=== PATIENT | male | born 1960 | race Caucasian/White ===

== ENCOUNTER 2016-12-26 08:03 | Inpatient (IN) | payer OTHER, MEDICAID ==
[~2016-12-26] VITALS: Ht 152.4 cm; Wt 65.5 kg
[2016-12-26 09:00] LABS: microscopic required? NO
[2016-12-26 09:15] LABS: UA SPECIFIC GRAVITY 1.015 (1.005-1.035); urine erythrocyte NEGATIVE (NEGATIVE)
[2016-12-26 11:11] LABS: BASOPHIL % 0.1 % (0-2)
[2016-12-26 11:12] LABS: PLATELET COUNT 446 x10^3mcL (130-400); RED CELL DISTRIBUTION WIDTH 15.9 % (11.5-14.5)
[2016-12-26 11:31] LABS: CALCIUM 8.6 mg/dL (8.5-10.1); CARBON DIOXIDE 32.6 mmol/L (21-32); CHLORIDE SERUM 103 mmol/L (98-107); CREATININE SERUM 1.3 mg/dL (0.7-1.3); GFR1 > 60 mL/min; GLUCOSE SERUM 109 mg/dL (74-106); POTASSIUM SERUM 4.1 mmol/L (3.5-5.1); SODIUM SERUM 138 mmol/L (136-145)
[2016-12-26 11:36] LABS: ALKALINE PHOSPHATASE 96 U/L (46-116); ALT/SGPT 10 U/L (16-63); AST/SGOT 18 U/L (15-37); BILIRUBIN TOTAL 0.32 mg/dL (0.20-1.00); TOTAL PROTEIN, SERUM 7.2 g/dL (6.4-8.2)
[2016-12-26 11:37] LABS: ALBUMIN 1.8 g/dL (3.4-5.0)
[2016-12-26] MEDS ORDERED: REFRESH OPTIVE (13:16)
[2016-12-26] MEDS ORDERED: MAXITROL1 OIN OU (13:17)
[2016-12-26] MEDS ORDERED: FLUOROMETHOLONE (13:18)
[2016-12-26] MEDS ORDERED: TINACTIN1% (13:19)
[2016-12-26] MEDS ORDERED: SELENIUM SULFIDE (13:20)
[2016-12-26] MEDS ORDERED: VITAMIN C PURE500 M1 PO (13:21)
[2016-12-26] MEDS ORDERED: MOM (13:22)
[2016-12-26] MEDS ORDERED: ACETAMINOPHEN (13:22)
[2016-12-26] MEDS ORDERED: [UNRECOGNIZED DRUG - OTHER] TP (13:23)
[2016-12-26] MEDS ORDERED: SEROQUEL100 MG PO (13:24)
[2016-12-26] MEDS ORDERED: ONE A DAY MEN (13:24)
[2016-12-26] MEDS ORDERED: SLOW RELEASE47.5 MG (13:24)
[2016-12-26] MEDS ORDERED: PROZ20 PO (13:25)
[2016-12-26] MEDS ORDERED: LEVOTHYROXIN0.125 M2 PO (13:25)
[2016-12-26] MEDS ORDERED: DEPAKOTE ER500 MG PO (13:26)
[2016-12-26] MEDS ORDERED: CERTIRIZINE HCL (13:27)
[2016-12-26 14:23] VITALS: BP 120/66
[2016-12-26 14:28] VITALS: Ht 152.4 cm; Wt 65.5 kg
[2016-12-26 15:22] LABS: CHOLESTEROL/HDL RATIO 2.9
[2016-12-26 15:28] LABS: AMPHETAMINE QUAL UR NONE DETECTED (NEG <=1000)
[2016-12-26 15:35] LABS: T3 TOTAL 0.38 ng/mL
[2016-12-26 15:38] LABS: FREE T4 0.97 ng/dL (0.76-1.46); FREE THYROXINE INDEX 1.2 ug/dL (1.4-4.5); T4(THYROXINE) 3.3 ug/dL (4.7-13.3)
[2016-12-26 22:37] VITALS: BP 105/48
[2016-12-27 05:56] LABS: BASOPHIL % 0.1 % (0-2)
[2016-12-27 06:14] LABS: CALCIUM 8.5 mg/dL (8.5-10.1); CARBON DIOXIDE 32.1 mmol/L (21-32); CHLORIDE SERUM 102 mmol/L (98-107); CREATININE SERUM 1.3 mg/dL (0.7-1.3); GFR1 > 60 mL/min; GLUCOSE SERUM 84 mg/dL (74-106); PHOSPHOROUS 3.8 mg/dL (2.5-4.9); POTASSIUM SERUM 4.1 mmol/L (3.5-5.1); SODIUM SERUM 137 mmol/L (136-145)
[2016-12-27 06:33] LABS: PLATELET COUNT 418 x10^3mcL (130-400); RED CELL DISTRIBUTION WIDTH 16.5 % (11.5-14.5)
[2016-12-27 07:07] VITALS: BP 77/47
[2016-12-27 07:09] VITALS: BP 77/47
[2016-12-27 08:34] VITALS: BP 135/92
[2016-12-27 12:55] VITALS: BP 96/57
[2016-12-27 17:22] VITALS: BP 93/59
[2016-12-27 21:44] VITALS: BP 91/59
[2016-12-28 06:11] LABS: BASOPHIL % 0.5 % (0-2)
[2016-12-28 06:22] LABS: CALCIUM 8.2 mg/dL (8.5-10.1); CARBON DIOXIDE 33.3 mmol/L (21-32); CREATININE SERUM 1.4 mg/dL (0.7-1.3); PHOSPHOROUS 4.2 mg/dL (2.5-4.9); POTASSIUM SERUM 3.9 mmol/L (3.5-5.1)
[2016-12-28 06:35] VITALS: BP 104/52
[2016-12-28 06:36] LABS: PLATELET COUNT 416 x10^3mcL (130-400); RED CELL DISTRIBUTION WIDTH 16.9 % (11.5-14.5); rbc morphology (normal/abnorm) ABNORMAL (NORMAL)
[2016-12-28 09:01] VITALS: BP 95/61
[2016-12-28 17:59] VITALS: BP 90/56
[2016-12-28 21:46] VITALS: BP 99/53
[2016-12-29 05:08] VITALS: BP 109/50
[2016-12-29 06:51] LABS: BASOPHIL % 0.3 % (0-2)
[2016-12-29 06:59] LABS: PLATELET COUNT 432 x10^3mcL (130-400); RED CELL DISTRIBUTION WIDTH 16.2 % (11.5-14.5)
[2016-12-29 07:00] LABS: rbc morphology (normal/abnorm) ABNORMAL (NORMAL)
[2016-12-29 07:21] LABS: CALCIUM 8.1 mg/dL (8.5-10.1); CREATININE SERUM 1.5 mg/dL (0.7-1.3); PHOSPHOROUS 2.9 mg/dL (2.5-4.9); POTASSIUM SERUM 3.6 mmol/L (3.5-5.1)
[2016-12-29 09:15] VITALS: BP 95/57
[2016-12-29 13:38] VITALS: BP 93/53
[2016-12-29 17:33] VITALS: BP 96/50
[2016-12-29 20:54] VITALS: BP 97/44
[2016-12-30 05:22] VITALS: BP 141/89
[2016-12-30 06:43] LABS: BASOPHIL % 0.5 % (0-2); PLATELET COUNT 386 x10^3mcL (130-400)
[2016-12-30 06:46] LABS: CARBON DIOXIDE 33.3 mmol/L (21-32); CREATININE SERUM 1.5 mg/dL (0.7-1.3); RED CELL DISTRIBUTION WIDTH 16.5 % (11.5-14.5); rbc morphology (normal/abnorm) ABNORMAL (NORMAL)
[2016-12-30 09:00] VITALS: BP 95/55
[2016-12-30 14:38] VITALS: BP 94/59
[2016-12-30 14:46] VITALS: BP 94/59
[2016-12-30 17:05] VITALS: BP 91/51
[2016-12-30 22:36] VITALS: BP 90/56
[2016-12-31 05:51] VITALS: BP 97/46
[2016-12-31 06:24] LABS: CALCIUM 8.2 mg/dL (8.5-10.1); CARBON DIOXIDE 30.9 mmol/L (21-32); CREATININE SERUM 1.4 mg/dL (0.7-1.3); PHOSPHOROUS 3.4 mg/dL (2.5-4.9); POTASSIUM SERUM 4.3 mmol/L (3.5-5.1)
[2016-12-31 08:37] LABS: BASOPHIL % 0.5 % (0-2); PLATELET COUNT 422 x10^3mcL (130-400); RED CELL DISTRIBUTION WIDTH 17.3 % (11.5-14.5)
[2016-12-31 10:16] VITALS: BP 126/50
[2016-12-31 13:30] VITALS: BP 124/65
[2016-12-31 17:10] VITALS: BP 90/53
[2017-01-01] VITALS (7 sets, daily range): BP systolic 80–128; BP diastolic 34–64
[2017-01-01 06:16] LABS: BASOPHIL % 0.7 % (0-2)
[2017-01-01 06:21] LABS: CALCIUM 8.1 mg/dL (8.5-10.1); CREATININE SERUM 1.4 mg/dL (0.7-1.3); MAGNESIUM 1.9 mg/dL (1.8-2.4); PHOSPHOROUS 4.1 mg/dL (2.5-4.9); POTASSIUM SERUM 4.3 mmol/L (3.5-5.1)
[2017-01-01 06:37] LABS: PLATELET COUNT 404 x10^3mcL (130-400); RED CELL DISTRIBUTION WIDTH 17.3 % (11.5-14.5)
[2017-01-01 06:38] LABS: rbc morphology (normal/abnorm) ABNORMAL (NORMAL)
[2017-01-01] MEDS ORDERED: LEV500PM IV (10:55)
[2017-01-01] MEDS ORDERED: CLE6PM IV (10:58)
[2017-01-01] MEDS ORDERED: APAP/HYDROCODON1 T13 PO (11:00)
[2017-01-01] MEDS ORDERED: FLO4 PO (11:00)
[2017-01-01] MEDS ORDERED: IPRATROPIUM BROM3 M2 HHN (11:00)
[2017-01-01] MEDS ORDERED: TYL325 PO (11:01)
[2017-01-01] MEDS ORDERED: ZOFI IV (11:02)
[2017-01-01] MEDS ORDERED: L20I IV (11:02)
[2017-01-01] MEDS ORDERED: LEVOFLOXACIN I150 ML IV (11:14)
== END 2017-01-01 19:10 | DRG 177 ==
LOC: ED 08:03 → DU 12:45 → MU 12:45 → DU 14:04 → MU 12-27 17:08
PROVIDERS: Family Medicine; Internal Medicine Gastroenterology; Specialist; ADMIT Family Medicine
PROC: 0DJD8ZZ Inspection of Lower Intestinal Tract, Via Natural or Artificial Opening Endoscopic (ICD-10-PCS; principal; 2016-12-31 12:00)
DX: J69.0 Pneumonitis due to inhalation of food and vomit (principal); E43 Unspecified severe protein-calorie malnutrition; N17.0 Acute kidney failure with tubular necrosis; D62 Acute posthemorrhagic anemia; S36.63XA Laceration of rectum, initial encounter; K59.00 Constipation, unspecified; R91.8 Other nonspecific abnormal finding of lung field; Q90.9 Down syndrome, unspecified; R33.9 Retention of urine, unspecified; F31.9 Bipolar disorder, unspecified; F03.90 Unspecified dementia, unspecified severity, without behavioral disturbance, psychotic disturbance, mood disturbance, and anxiety; F79 Unspecified intellectual disabilities; E03.9 Hypothyroidism, unspecified; H04.123 Dry eye syndrome of bilateral lacrimal glands; Z68.29 Body mass index [BMI] 29.0-29.9, adult; X58.XXXA Exposure to other specified factors, initial encounter; Y92.199 Unspecified place in other specified residential institution as the place of occurrence of the external cause
CPT/HCPCS: 36600; 45330; 76770; 80307; 83880; 84439; G0480; J1200; J1610; J1644; J1940; J1956; J2250; J2270; J2310; J2405; J3010; J3490; J7030; J7620; Q0092; Q9967

== ENCOUNTER 2017-03-16 01:41 | Inpatient (IN) | payer OTHER, MEDICAID ==
[~2017-03-16] VITALS: Ht 165.1 cm; Wt 66.2 kg
[~2017-03-16 01:41] MED LIST: ACETAMINOPHEN; APAP/HYDROCODON1 T13 PO; CERTIRIZINE HCL; CLE6PM IV; DEPAKOTE ER500 MG PO; FLO4 PO; FLUOROMETHOLONE; IPRATROPIUM BROM3 M2 HHN; L20I IV; LEV500PM IV; LEVOFLOXACIN I150 ML IV; LEVOTHYROXIN0.125 M2 PO; MAXITROL1 OIN OU; MOM; ONE A DAY MEN; PROZ20 PO; REFRESH OPTIVE; SELENIUM SULFIDE; SEROQUEL100 MG PO; SLOW RELEASE47.5 MG; TINACTIN1%; TYL325 PO; VITAMIN C PURE500 M1 PO; ZOFI IV; [UNRECOGNIZED DRUG - OTHER] TP
[2017-03-16 03:13] LABS: PLATELET COUNT 316 x10^3mcL (130-400); RED CELL DISTRIBUTION WIDTH 13.2 % (11.5-14.5)
[2017-03-16 03:18] LABS: BASOPHIL % 4.9 % (0-2)
[2017-03-16 03:26] LABS: CALCIUM 8.9 mg/dL (8.5-10.1); CARBON DIOXIDE 31.6 mmol/L (21-32); CHLORIDE SERUM 104 mmol/L (98-107); CREATININE SERUM 1.3 mg/dL (0.7-1.3); GFR1 > 60 mL/min; GLUCOSE SERUM 117 mg/dL (74-106); POTASSIUM SERUM 4.1 mmol/L (3.5-5.1); SODIUM SERUM 140 mmol/L (136-145)
[2017-03-16 03:30] LABS: ALKALINE PHOSPHATASE 90 U/L (46-116); ALT/SGPT 12 U/L (16-63); AMYLASE 48 U/L (25-115); AST/SGOT 17 U/L (15-37); BILIRUBIN TOTAL 0.25 mg/dL (0.20-1.00); LIPASE 139 IU/L (73-393); TOTAL PROTEIN, SERUM 7.1 g/dL (6.4-8.2)
[2017-03-16 03:31] LABS: ALBUMIN 2.2 g/dL (3.4-5.0)
[2017-03-16 03:44] LABS: CREATINE KINASE 36 U/L (39-308)
[2017-03-16 03:45] LABS: CK-MB < 0.5 ng/mL (0-3.6)
[2017-03-16 03:53] LABS: microscopic required? NO
[2017-03-16 04:05] LABS: UA SPECIFIC GRAVITY 1.025 (1.005-1.035); urine erythrocyte NEGATIVE (NEGATIVE)
[2017-03-16] MEDS ORDERED: LEVOTHYROXIN0.125 M2 PO (04:39)
[2017-03-16] MEDS ORDERED: TAMSULOSIN HYD0.4 M1 PO (04:39)
[2017-03-16] MEDS ORDERED: SEROQUEL100 MG PO (04:39)
[2017-03-16] MEDS ORDERED: PROZ20 PO (04:40)
[2017-03-16] MEDS ORDERED: DEPAKOTE ER500 MG PO (04:40)
[2017-03-16] MEDS ORDERED: NATURAL IRON65 MG PO (04:41)
[2017-03-16] MEDS ORDERED: C500500 MG PO (04:42)
[2017-03-16] MEDS ORDERED: ALL DAY ALLERGY10 M2 PO (04:42)
[2017-03-16] MEDS ORDERED: GOOD NEIGH1200 MG/15 PO (04:43)
[2017-03-16] MEDS ORDERED: APAP500 MG PO (04:43)
[2017-03-16] MEDS ORDERED: [UNRECOGNIZED DRUG - OTHER] TP (04:44)
[2017-03-16] MEDS ORDERED: MAXITROL1 OIN OD (04:44)
[2017-03-16] MEDS ORDERED: SELENIUM SULFI180 ML TP (04:45)
[2017-03-16] MEDS ORDERED: FLUOROMETHOLONE5 M1 OU (04:45)
[2017-03-16] MEDS ORDERED: CETAPHIL226 GM TP (04:47)
[2017-03-16] MEDS ORDERED: SEROQUEL200 MG PO (05:44)
[2017-03-16 05:47] LABS: CHOLESTEROL/HDL RATIO 3.2
[2017-03-16 05:52] LABS: T3 TOTAL 0.57 ng/mL
[2017-03-16 06:07] LABS: FREE T4 0.74 ng/dL (0.76-1.46)
[2017-03-16 06:09] LABS: FREE THYROXINE INDEX 1.3 ug/dL (1.4-4.5); T4(THYROXINE) 3.8 ug/dL (4.7-13.3)
[2017-03-16 07:56] VITALS: BP 146/68
[2017-03-16 10:10] VITALS: BP 99/57
[2017-03-16 15:30] VITALS: BP 108/62
[2017-03-16 17:48] VITALS: BP 102/47
[2017-03-16 20:56] VITALS: BP 104/62
[2017-03-17 05:15] VITALS: BP 93/54
[2017-03-17 06:27] LABS: BASOPHIL % 0.5 % (0-2); PLATELET COUNT 271 x10^3mcL (130-400); RED CELL DISTRIBUTION WIDTH 14.1 % (11.5-14.5)
[2017-03-17 06:46] LABS: CALCIUM 8.1 mg/dL (8.5-10.1); CARBON DIOXIDE 27.1 mmol/L (21-32); CHLORIDE SERUM 103 mmol/L (98-107); CREATININE SERUM 1.2 mg/dL (0.7-1.3); GFR1 > 60 mL/min; GLUCOSE SERUM 77 mg/dL (74-106); MAGNESIUM 1.8 mg/dL (1.8-2.4); PHOSPHOROUS 3.4 mg/dL (2.5-4.9); SODIUM SERUM 130 mmol/L (136-145)
[2017-03-17 07:02] LABS: rbc morphology (normal/abnorm) ABNORMAL (NORMAL)
[2017-03-17 10:00] VITALS: BP 97/50
[2017-03-17 14:22] LABS: CARBON DIOXIDE 29.6 mmol/L (21-32); CHLORIDE SERUM 105 mmol/L (98-107); CREATININE SERUM 1.3 mg/dL (0.7-1.3); GFR1 > 60 mL/min; GLUCOSE SERUM 89 mg/dL (74-106); POTASSIUM SERUM 4.3 mmol/L (3.5-5.1); SODIUM SERUM 140 mmol/L (136-145)
[2017-03-17 15:11] VITALS: BP 106/64
[2017-03-17 21:54] VITALS: BP 107/63
[2017-03-18 06:28] LABS: BASOPHIL % 0.3 % (0-2); PLATELET COUNT 307 x10^3mcL (130-400)
[2017-03-18 06:34] LABS: RED CELL DISTRIBUTION WIDTH 14.8 % (11.5-14.5)
[2017-03-18 06:37] VITALS: BP 101/67
[2017-03-18 06:51] LABS: CALCIUM 8.3 mg/dL (8.5-10.1); CARBON DIOXIDE 29.9 mmol/L (21-32); CHLORIDE SERUM 104 mmol/L (98-107); CREATININE SERUM 1.3 mg/dL (0.7-1.3); GFR1 > 60 mL/min; GLUCOSE SERUM 93 mg/dL (74-106); POTASSIUM SERUM 4.2 mmol/L (3.5-5.1); SODIUM SERUM 140 mmol/L (136-145)
[2017-03-18 07:37] LABS: rbc morphology (normal/abnorm) ABNORMAL (NORMAL)
[2017-03-18 09:50] VITALS: BP 100/62
[2017-03-18 18:26] VITALS: BP 96/51
[2017-03-18 21:10] VITALS: BP 112/71
[2017-03-19 06:31] LABS: BASOPHIL % 0.7 % (0-2); PLATELET COUNT 298 x10^3mcL (130-400); RED CELL DISTRIBUTION WIDTH 14.2 % (11.5-14.5)
[2017-03-19 06:42] LABS: CALCIUM 8.5 mg/dL (8.5-10.1); CARBON DIOXIDE 32.1 mmol/L (21-32); CHLORIDE SERUM 103 mmol/L (98-107); CREATININE SERUM 1.3 mg/dL (0.7-1.3); GFR1 > 60 mL/min; GLUCOSE SERUM 85 mg/dL (74-106); POTASSIUM SERUM 4.4 mmol/L (3.5-5.1); SODIUM SERUM 139 mmol/L (136-145)
[2017-03-19 06:59] VITALS: BP 110/75
[2017-03-19 10:11] VITALS: BP 115/77
[2017-03-19 14:56] VITALS: BP 111/58
[2017-03-19 17:00] VITALS: BP 98/54
[2017-03-20 04:52] VITALS: BP 98/54
[2017-03-20 10:19] VITALS: BP 115/66
[2017-03-20 13:38] VITALS: BP 99/52
[2017-03-20 21:23] VITALS: BP 90/57
[2017-03-21 05:52] VITALS: BP 104/65
[2017-03-21 06:34] LABS: BASOPHIL % 0.5 % (0-2); PLATELET COUNT 326 x10^3mcL (130-400); RED CELL DISTRIBUTION WIDTH 14.1 % (11.5-14.5)
[2017-03-21 06:58] LABS: CALCIUM 8.4 mg/dL (8.5-10.1); CARBON DIOXIDE 33.6 mmol/L (21-32); CHLORIDE SERUM 103 mmol/L (98-107); CREATININE SERUM 1.3 mg/dL (0.7-1.3); GFR1 > 60 mL/min; GLUCOSE SERUM 97 mg/dL (74-106); MAGNESIUM 1.9 mg/dL (1.8-2.4); PHOSPHOROUS 3.7 mg/dL (2.5-4.9); POTASSIUM SERUM 3.9 mmol/L (3.5-5.1); SODIUM SERUM 138 mmol/L (136-145)
[2017-03-21] MEDS ORDERED: LEVAQUIN750 MG PO (10:13)
[2017-03-21] MEDS ORDERED: LAC PO (10:15)
[2017-03-21] MEDS ORDERED: SYN1 PO (10:15)
[2017-03-21] MEDS ORDERED: CLEOCIN HCL300 MG PO (10:16)
[2017-03-21] MEDS ORDERED: DEPAKOTE ER500 MG PO (10:17)
[2017-03-21 11:43] VITALS: BP 107/74
[2017-03-21 14:19] VITALS: BP 107/74
[2017-03-21 17:52] VITALS: BP 125/78
== END 2017-03-21 19:20 | DRG 177 ==
LOC: ED 01:41 → DU 04:31 → MU 03-21 06:50
PROVIDERS: Emergency Medicine; ADMIT Family Medicine
DX: J69.0 Pneumonitis due to inhalation of food and vomit (principal); J96.01 Acute respiratory failure with hypoxia; E43 Unspecified severe protein-calorie malnutrition; E87.1 Hypo-osmolality and hyponatremia; E03.9 Hypothyroidism, unspecified; D53.9 Nutritional anemia, unspecified; H04.129 Dry eye syndrome of unspecified lacrimal gland; M10.9 Gout, unspecified; F31.9 Bipolar disorder, unspecified; Q90.9 Down syndrome, unspecified; Z68.24 Body mass index [BMI] 24.0-24.9, adult
CPT/HCPCS: 83880; 84439; 97110-GP; 97116-GP; 97530-GP; J1956; J2270; J3490; J7030; Q0092

== ENCOUNTER 2017-03-31 01:56 | Inpatient (IN) | payer OTHER, MEDICAID ==
[2017-03-31] VITALS (12 sets, daily range): BP systolic 62–123; BP diastolic 34–77
[~2017-03-31] VITALS: Ht 162.6 cm; Wt 71.9 kg
[~2017-03-31 01:56] MED LIST changes: +ALL DAY ALLERGY10 M2 PO; +APAP500 MG PO; +C500500 MG PO; +CETAPHIL226 GM TP; +CLEOCIN HCL300 MG PO; +FLUOROMETHOLONE5 M1 OU; +GOOD NEIGH1200 MG/15 PO; +LAC PO; +LEVAQUIN750 MG PO; +MAXITROL1 OIN OD; +NATURAL IRON65 MG PO; +SELENIUM SULFI180 ML TP; +SEROQUEL200 MG PO; +SYN1 PO; +TAMSULOSIN HYD0.4 M1 PO
--- NOTE | 2017-03-31 02:03 | NUR ---
PT BIBA TO ED FOR ALOC. PER MEDIC PT IS FROM [facility] AND WAS FOUND ALOC AT AN UNKNOWN TIME. BP ON SCENE 74/39, T 101.7, 84% RA. MEDICS PLACED PT ON NONREBREATHER SAT INCREASED TO 94. PT HAS COARSE CRACKLES AND RONCHI UPON AUSCULTATION. PT NON VERBAL, HAS HX OF DOWN SYNDROME, PNEUMONIA, AND DEMENTIA PER MEDIC. PT AWAKE, RESPONDS TO CALL OF HIS NAME, SO SIGNS OF PAIN AT THIS TIME
--- NOTE | 2017-03-31 02:05 | NUR ---
2.5L NS INITIATED PER MD ORDER; SEE EMAR
--- NOTE | 2017-03-31 02:13 | NUR ---
LAMAR INSERTION IN PROGRESS
--- NOTE | 2017-03-31 02:21 | NUR ---
SUCTIONING PERFORMED BY RT; MODERATE AMOUNT OF TORRES SPUTUM RETURN WITH SOME BLOOS NOTED
--- NOTE | 2017-03-31 02:23 | NUR ---
LAB AT BEDSIDE
--- NOTE | 2017-03-31 02:47 | NUR ---
LEVAQUIN INITIATED PER MD ORDER; SEE EMAR
--- NOTE | 2017-03-31 02:55 | NUR ---
PT STRAIGHT CATH; 900 ML CLEAR YELOW URINE RETURN
--- NOTE | 2017-03-31 03:05 | NUR ---
2.5 L FLUIDS COMPLETED INFUSION AT THIS TIME
[2017-03-31 03:13] LABS: PLATELET COUNT 357 x10^3mcL (130-400); RED CELL DISTRIBUTION WIDTH 13.9 % (11.5-14.5)
[2017-03-31 03:15] LABS: microscopic required? NO
[2017-03-31 03:34] LABS: CARBON DIOXIDE 28.9 mmol/L (21-32); CREATININE SERUM 1.8 mg/dL (0.7-1.3)
[2017-03-31 03:39] LABS: ALBUMIN 1.6 g/dL (3.4-5.0); BILIRUBIN TOTAL 0.2 mg/dL (0.20-1.00); TOTAL PROTEIN, SERUM 6.1 g/dL (6.4-8.2)
[2017-03-31 03:40] LABS: urine erythrocyte NEGATIVE (NEGATIVE)
[2017-03-31 03:53] LABS: CK-MB < 0.5 ng/mL (0-3.6); CREATINE KINASE 100 U/L (39-308)
[2017-03-31 03:55] LABS: MONOCYTE 6 % (0-7); SEGMENTED NEUTROPHILS 76 % (37-75)
[2017-03-31 03:56] LABS: BAND NEUTROPHIL 12 % (0-10); BASOPHIL 0 % (0-2); PLATELET MORPHOLOGY LARGE PLATELET SEEN; rbc morphology (normal/abnorm) ABNORMAL (NORMAL)
--- NOTE | 2017-03-31 04:16 | NUR ---
LEVAQUIN COMPLETED, CLEOCIN INITIATED AT THIS TIME
--- NOTE | 2017-03-31 04:32 | NUR ---
ANOTHER LITER OF NS INITIATED PER MD ORDER; IV PATENT AND INTACT
--- NOTE | 2017-03-31 05:04 | NUR ---
LITER NS COMPLETED; TOTAL INFUSED UP TO THIS TIME EQUALS 3.5 LITERS NS
--- NOTE | 2017-03-31 05:06 | NUR ---
PER MD, HOLD LEVOPHED AT THIS TIME DUE TO BP. WILL CONTINUE TO MONITOR
--- NOTE | 2017-03-31 05:21 | NUR ---
PT IN BED AWAKE ALERT; RESP EVEN AND ON NON REBREATHER AT 15L; NO SIGNS OF PAIN NOTED AT THIS TIME
[2017-03-31 05:29] LABS: T3 TOTAL 0.21 ng/mL
--- NOTE | 2017-03-31 05:31 | NUR ---
LAB AT BEDSIDE FOR LACTIC ACID REDRAW
[2017-03-31 05:44] LABS: MAGNESIUM 1.8 mg/dL (1.8-2.4); PHOSPHOROUS 3.5 mg/dL (2.5-4.9)
[2017-03-31 05:45] LABS: FREE T4 0.73 ng/dL (0.76-1.46); FREE THYROXINE INDEX 0.9 ug/dL (1.4-4.5); T4(THYROXINE) 2.4 ug/dL (4.7-13.3)
[2017-03-31 05:52] LABS: CHOLESTEROL/HDL RATIO 2.9
--- NOTE | 2017-03-31 06:18 | NUR ---
LEVOPHED INITIATED AT 2MCG, AT BP 81/48 MAP OF 56
--- NOTE | 2017-03-31 06:27 | NUR ---
BP 76/52 WITH MAP 57; LEVOPHED TITRATED UP TO 4MCG. WILL CONTINUE TO MONITOR
--- NOTE | 2017-03-31 06:32 | NUR ---
LEVOPHED TITRATED UP TO 6 MCG FOR BP 71/54 WITH MAP OF 60. PT AWAKE ALERT, O2 SAT 99% ON NON REBREATHER AT 15 L, NO SIGNS OF PAIN NOTED AT THIS TIME
--- NOTE | 2017-03-31 06:37 | NUR ---
BP 99/58 WITH MAP OF 68 ON LEVOPHED TITRATED TO 6MCG
[2017-03-31 07:06] LABS: AMPHETAMINE QUAL UR NONE DETECTED (NEG <=1000)
--- NOTE | 2017-03-31 07:25 | NUR ---
CALLED TO GIVE REPORT; WAS TOLD NURSE WILL BACK BACK
--- NOTE | 2017-03-31 07:33 | NUR ---
RECEIVED PT FROM NIGHT NURSE. GCS OF 11 WITH PT AWAKE, INCOMPREHESIBLE, AND LOCALIZES TO PAIN WITH HX DOWN SYNDROME. RESP EVEN AND UNLABORED, WITH AUDIBLE RHOCHI. PT ON NRB AT 15LT, SAT AT 100%, WILL PLACE PT ON NC AND REEVALUATE. PT NOTED TO HAVE DIAPER ON. NS INFUSING AT 100ML/HR AND 500ML BOLUS INFUSING TO R HAND AND LEVOPHED INFUSING TO LAC AT 6MCG/MIN, MAP OF 64.
--- NOTE | 2017-03-31 07:53 | NUR ---
REPORT RECEIVED FROM HAND I BLOCKER. UPDATES PROVIDED, ALL QUESTIONS ANSWERED ALL CONCERNS ADDRESSED. WILL ASSESS SHORTLY.
--- NOTE | 2017-03-31 07:53 | NUR ---
REPORT GIVEN TO LORENZO GRIMM IN ICU FOR CONTINUITY OF CARE
--- NOTE | 2017-03-31 08:05 | NUR ---
PATIENT ARRIVED ON UNIT AT THIS TIME. VITAL SIGNS ARE TEMP 100.6, HR 125, O2 89, BP 90/50(69), RR 13. PATIENT ARRIVED ON 3 L NC. PATIENT HAS RHONCHI BILATERALLY. ORAL CARE PROVIDED, SUCTIONING PROVIDED, NO SECRETIONS NOTED. PATIENT HAS IV ACCESS TO LEFT AC AND RIGHT HAND. LEVOPHED INFUSING AT 6 MCG/MIN AND NS AT 110 ML/HR. PUPILS ARE UNEQUAL BUT SLUGGISH ON THE RIGHT. OPACITY NOTED TO LEFT PUPIL. PATIENT FOLLOWS COMMANDS APPROPRIATELY, SPEAKS APPROPRIATELY AND OPENS EYES SPONTANOEUSLY. PULSES ARE MODERATE ZACK, CAP REFILL IS <3 SECONDS ZACK, BOWEL SOUNDS ARE HYPOACTIVE AND ABDOMEN IS FIRM AND DISTENDED. NO URINE NOTED, SKIN IS WARM AND DRY. WILL CONTINUE TO MONITOR PATIENT.
--- NOTE | 2017-03-31 08:23 | NUR ---
DR CASTRO, RESIDENTS AND INTERNS ROUNDING AT THIS TIME. UPDATES PROVIDED.
--- NOTE | 2017-03-31 08:30 | NUR ---
NASAL CANNULA TITRATED UP TO 5 LPM AT THIS TIME DUE TO PULSE OX, IN THE MID 80'S NOTED. WILL CONTINUE TO MONITOR PATIENT.
--- NOTE | 2017-03-31 09:00 | NUR ---
LEVOPHED TITRATED DOWN TO 5 MCG/MIN AT THIS TIME DUE TO MAPS IN THE 70'S CONSISTENTLY X3 READINGS. WILL CONTINUE TO MONITOR PATIENT.
--- NOTE | 2017-03-31 09:00 | NUR ---
ATTEMPTED TO PLACE LAMAR AT THIS TIME, UNABLE TO ADVANCE PAST PROSTATE. DR WHITLEY MADE AWARE.
--- NOTE | 2017-03-31 09:21 | NUR ---
CAREGIVER FROM FACILITY CALLED AT THIS TIME. GIVEN PT'S ROOM NUMBER.
--- NOTE | 2017-03-31 09:45 | NUR ---
LEVOPHED DECREASED TO 4 MCG/MIN AT THIS TIME DUE TO MAPS IN THE HIGH 70'S AND LOW 80'S NOTED. WILL CONTINUE TO MONITOR PATIENT.
--- NOTE | 2017-03-31 09:49 | NUR ---
CUSTOMER QUALITY ENGINEER FROM [facility] IS BEDSIDE WITH PATIENT AT THIS TIME. UPDATES PROVIDED, WILL CONTINUE TO MONITOR PATIENT.
--- NOTE | 2017-03-31 10:15 | NUR ---
LEVOPHED TITRATED DOWN TO 3 MCG/MIN AT THIS TIME DUE TO MAPS IN THE 80'S NOTED X3 READINGS. WILL CONTINUE TO MONITOR PATIENT.
--- NOTE | 2017-03-31 11:27 | NUR ---
PT'S LEVOPHED TITRATED DOWN TO 2MCG/MIN AT THIS TIME. PT'S BP 107/57 WITH MAP 75
--- NOTE | 2017-03-31 12:08 | NUR ---
PT'S LEVOPHED TITRATED DOWN AT THIS TIME TO 1MCG/MIN. PT'S BP 107/73 MAP 84.
--- NOTE | 2017-03-31 12:24 | NUR ---
SPEECH THERAPIST BEDSIDE WITH PATIENT AT THIS TIME FOR EVAL. PATIENT WAS UNABLE TO TOLERATE ANY FOODS BY MOUTH. DR. ANGI CHAIDEZ, WILL AWAIT ORDERS.
--- NOTE | 2017-03-31 12:25 | NUR ---
LEVOPHED STOPPED AT THIS TIME, BP 127/48 MAP 72. WILL CONTINUE TO MONITOR.
--- NOTE | 2017-03-31 12:30 | NUR ---
RT FREGOSO BEDSIDE WITH PATIENT AT THIS TIME. WILL CONTINUE TO MONITOR
--- NOTE | 2017-03-31 12:50 | NUR ---
CREAM DIPPER note (bedside swallow evaluation completed) [id number]. Bedside swallow evaluation completed, please see report for details. CREAM DIPPER provided pt with education regarding purpose of evaluation and rationale for recommendations; however, pt unable to benefit from education provided. Recommend: 1) STRICT NPO (careful oral cares with concurrent suctioning) 2) consider alternative method(s) of nutrition/hydration/medication vs comfort measures, as appropriate 3) CREAM DIPPER to f/u for continued assessment of pt's ability to take PO safely, as pt willing/able to participate safely, as appropriate G-codes: [id number] [facility] NOMS level 1. PVE for d/w RN (Mary) and rn discharge prior to and following bedside swallow evaluation completion.
--- NOTE | 2017-03-31 13:50 | NUR ---
DR SINGH ON PHONE WITH PT'S BROTHER AT THIS TIME TO DISCUSS CODE STATUS AND POSSIBILITY OF INTUBATION AND PROGNOSIS OF TREATMENT. PT'S BROTHER STATING THAT IF PT MUST BE INTUBATED, HE WISHES TO GIVE HIM 2-3 DAYS ON VENTILATOR, DOES NOT WISH TO HAVE TRACHE PLACED.
--- NOTE | 2017-03-31 14:54 | NUR ---
INTUBATION NOTE: DR SINGH BEDSIDE INTUBATING PATIENT AT THIS TIME. 7.5 ETT THAT IS 24 LL. 40 MG OF SUCC AND 20 MG ETOMIDATE GIVEN. POSITIVE COLOR CHANGE NOTED. PATIENT IS ON AC MODE WITH THE FOLLOWING SETTINGS: Vt 400, RATE 14, PEEP 5, FIO2 100. WILL CONTINUE TO MONITOR PATIENT.
--- NOTE | 2017-03-31 15:10 | NUR ---
LAMAR PLACED, OGT PLACED. PATIENT TOLERATED PROCEDURE WELL. WILL CONTINUE TO MONITOR PATIENT.
--- NOTE | 2017-03-31 15:29 | NUR ---
X-RAY BEDSIDE WITH PATIENT AT THIS TIME FOR CXR TO VERIFY PLACEMENT OF OGT AND ETT. WILL CONTINUE TO MONITOR PATIENT.
--- NOTE | 2017-03-31 16:05 | NUR ---
LEVOPHED INITIATED AT THIS TIME DUE TO MAP IN THE 40'S NOTED AFTER 1L NS BOLUS. WILL CONTINUE TO MONITOR PATIENT.
--- NOTE | 2017-03-31 16:30 | NUR ---
LEVOPHED INCREASED TO 5 MCG/MIN AT THIS TIME DUE TO MAP IN THE 40'S NOTED. WILL CONTINUE TO MONITOR PATIENT.
--- NOTE | 2017-03-31 17:15 | NUR ---
LEVOPHED INCREASED TO 7 MCG/MIN AT THIS TIME DUE TO MAP IN THE LOW 60'S NOTED. WILL CONTINUE TO MONITOR PATIENT.
--- NOTE | 2017-03-31 17:27 | NUR ---
2L NS BOLUS COMPLETED AT THIS TIME. BP 103/58(74), WILL CONTINUE TO MONITOR PATIENT.
--- NOTE | 2017-03-31 17:41 | NUR ---
X-RAY BEDSIDE WITH PATIENT AT THIS TIME. WILL CONTINUE TO MONITOR PATIENT,
[2017-03-31 18:19] LABS: PLATELET COUNT 306 x10^3mcL (130-400)
[2017-03-31 18:23] LABS: RED CELL DISTRIBUTION WIDTH 14.7 % (11.5-14.5)
--- NOTE | 2017-03-31 18:31 | NUR ---
PER RT ZENOBIA, FIO2 DECREASED TO 90% AND PEEP INCREASED TO 7. WILL CONTINUE TO MONITOR PATIENT.
[2017-03-31 18:34] LABS: CALCIUM 7.3 mg/dL (8.5-10.1); CARBON DIOXIDE 24.3 mmol/L (21-32); CREATININE SERUM 1.6 mg/dL (0.7-1.3); MAGNESIUM 1.3 mg/dL (1.8-2.4); PHOSPHOROUS 3.5 mg/dL (2.5-4.9); POTASSIUM SERUM 3.8 mmol/L (3.5-5.1)
[2017-03-31 18:35] LABS: BAND NEUTROPHIL 18 % (0-10); BASOPHIL 0 % (0-2); MONOCYTE 4 % (0-7); SEGMENTED NEUTROPHILS 74 % (37-75)
[2017-03-31 18:36] LABS: rbc morphology (normal/abnorm) ABNORMAL (NORMAL)
--- NOTE | 2017-03-31 19:11 | NUR ---
RECEIVED PT REPORT FROM HAYLEY GRIMM, QUESTIONS AND CONCERNS ADDRESSED BEDSIDE.
--- NOTE | 2017-03-31 19:11 | NUR ---
REPORT GIVEN TO NOC SHIFT SIRISHA FAROOQ, UPDATES PROVIDED, ALL QUESTIONS ANSWERED ALL CONCERNS ADDRESSED WILL ENDORSE CARE.
--- NOTE | 2017-03-31 19:25 | NUR ---
RECEIVED PT LAYING IN BED, HOB AT 30 DEGREES, PT IS INTUBATED AND SEDATED ON VERSED AT 2 MG/HR AND FENTANYL AT 0.5 MCG/KG/HR, MRSS OF 5. DOES NOT FOLLOW COMMANDS, UNABLE TO MAKE NEEDS KNOWN. ETT IN IN PLACE AND SECURED, TUBE SIZE 7.5, LL 23. ETT TO VENT SETTINGS, AC MODE, RATE 14, FIO2 90%, PEEP 7, VT 400. EVEN AND UNLABORED BREATHING NOTED, SYMMETRICAL CHEST EXPANSION, RONCHI AUSCULTATED TO BUL/BLL. RIJ TLC CDI INFUSING NS AT 110 ML/HR, LEVOPHED AT 7 MCG/MIN. NO S/S OF CHEST PAIN NOTED, CHEST WALL STABLE, NSR NOTED TO [employer]. SKIN IS WARM/DRY, +1 EDEMA TO BUE/BLE, CAP REFILL LESS THAN 3 SECONDS, PULSES MODERATE BUE/BLE. ABDOMEN SOFT/ROUND, HYPOACTIVE BOWEL SOUNDS X4 QUADRANTS, NO BM NOTED. F/C IN PLACE DRAINING TO GRAVITY, YELLOW COLORED URINE NOTED, NO SCROTAL EDEMA, NO PENILE DISCHARGE NOTED. SKIN IS WARM/DRY/INTACT, TURNED AND REPOSITIONED Q2H TO PREVENT SKIN BREAKDOWN. WILL MONITOR PT CLOSELY.
--- NOTE | 2017-03-31 20:50 | NUR ---
RT AT BEDSIDE, TITRATED FIO2 TO 80%, WILL MONITOR PT CLOSELY.
--- NOTE | 2017-03-31 20:56 | NUR ---
PT STARTED ON NUTREN PULMONARY TUBE FEEDING AT 10 ML/HR, GOAL OF 30 ML/HR, 50ML FWF Q4H.
--- NOTE | 2017-03-31 20:56 | NUR ---
RT AT BEDSIDE, BREATHING TREATMENT ADMINISTERED.
--- NOTE | 2017-03-31 21:12 | NUR ---
DR. WHITLEY AT BEDSIDE, NEW ORDERS RECEIVED AND WILL BE CARRIED OUT. NS TO BE STARTED AT 50 ML/HR.
--- NOTE | 2017-03-31 21:38 | NUR ---
CVP MONITORING STARTED AT THIS TIME, CVP OF 15 NOTED.
--- NOTE | 2017-03-31 22:43 | NUR ---
JONI REES AT BEDSIDE, TITRATED FIO2 TO 70%. WILL MONITOR PT CLOSELY.
[2017-04-01] VITALS (17 sets, daily range): BP systolic 77–132; BP diastolic 38–90
--- NOTE | 2017-04-01 00:04 | NUR ---
JONI REES AT BEDSIDE, TITRATED FIO2 TO 60%.
--- NOTE | 2017-04-01 01:33 | NUR ---
NUTREN PULMONARY INCREASED TO 20 ML/HR.
--- NOTE | 2017-04-01 01:36 | NUR ---
JONI RT AT BEDSIDE, FIO2 TITRATED TO 50%.
--- NOTE | 2017-04-01 04:08 | NUR ---
JONI REES AT BEDSIDE, FIO2 TITRATED TO 40%.
--- NOTE | 2017-04-01 04:39 | NUR ---
PHARMACIST ASSISTANT AT BEDSIDE FOR BLOOD DRAW.
[2017-04-01 04:46] LABS: BASOPHIL % 0 % (0-2); PLATELET COUNT 382 x10^3mcL (130-400); RED CELL DISTRIBUTION WIDTH 15.2 % (11.5-14.5)
[2017-04-01 05:08] LABS: CALCIUM 8.2 mg/dL (8.5-10.1); CARBON DIOXIDE 26.2 mmol/L (21-32); CREATININE SERUM 1.5 mg/dL (0.7-1.3); MAGNESIUM 1.5 mg/dL (1.8-2.4); PHOSPHOROUS 3.1 mg/dL (2.5-4.9); POTASSIUM SERUM 3.7 mmol/L (3.5-5.1)
--- NOTE | 2017-04-01 05:31 | NUR ---
NUTREN PULMONARY TITRTATED TO 30 ML/HR. TUBE FEEDING IS AT GOAL RATE. PT IS TOLERATING FEEDING WELL.
--- NOTE | 2017-04-01 05:41 | NUR ---
DR. WHITLEY AT BEDSIDE, UPDATES PROVIDED.
--- NOTE | 2017-04-01 06:05 | NUR ---
LEVOPHED TITRATED TO 5 MCG/MIN, WILL MONITOR CLOSELY.
--- NOTE | 2017-04-01 07:20 | NUR ---
REPORT RECEIVED FROM NOC SHIFT RN. UPDATES PROVIDED, ALL QUESTIONS ANSWERED, ALL CONCERNS ADDRESSED. WILL CONTINUE TO MONITOR PATIENT.
--- NOTE | 2017-04-01 09:25 | NUR ---
DR. CASTRO AND RESIDENTS ROUNDING AT THIS TIME, UPDATES PROVIDED, ALL QUESTIONS ANSWERED ALL CONCERNS ADDRESSED. WILL CONTINUE TO MONITOR PATIENT.
--- NOTE | 2017-04-01 09:30 | NUR ---
DR. SINGH BEDSIDE WITH PATIENT AT THIS TIME. CPAP TO BE STARTED TODAY, STEROIDS TO BE DC'D WILL CONTINUE TO MONITOR PATIENT.
--- NOTE | 2017-04-01 09:35 | NUR ---
LEVOPHED DECREASED TO 3 MCG/MIN AT THIS TIME DUE TO MAPS IN THE 80'S CONSISTENTLY. WILL CONTINUE TO MONITOR PATIENT.
--- NOTE | 2017-04-01 09:35 | NUR ---
SALLY AND VERSCAITLIN TURNED OFF AT THIS TIME FOR SEDATION VACATION PER DR. SINGH. WILL CONTINUE TO MONITOR PATIENT.
--- NOTE | 2017-04-01 11:45 | NUR ---
LEVO TITRATED DOWN TO 1 MCG/MIN AT THIS TIME. DUE TO MAPS IN THE 80'S X3 READINGS. WILL CONTINUE TO MONITOR PATIENT.
--- NOTE | 2017-04-01 11:50 | NUR ---
FAMILY BEDSIDE WITH PATIENT AT THIS TIME. UPDATES PROVIDED WILL CONTINUE TO MONITOR PATIENT.
--- NOTE | 2017-04-01 13:00 | NUR ---
LEVOPHED INCREASED TO 3 MCG/MIN AT THIS TIME DUE TO MAPS IN THE HIGH 50'S LOW 60'S WILL CONTINUE TO MONITOR.
--- NOTE | 2017-04-01 14:50 | NUR ---
LEVOPHED DECREASED TO 1 MCG/MIN AT THIS TIME DUE TO MAPS IN THE 70'S CONSISTENTLY. WILL CONTINUE TO MONITOR
--- NOTE | 2017-04-01 15:05 | NUR ---
CPAP INTITATED AT THIS TIME. WILL CONTINUE TO MONITOR PATIENT.
--- NOTE | 2017-04-01 15:05 | NUR ---
PLACED PT ON PSV CPAP 09/[address] SAMANTHA ERVIN, RN HALYEY AWARE. NO RESP DISTRESS NOTED AT THIS TIME, WILL MONITOR.
--- NOTE | 2017-04-01 15:15 | NUR ---
DR. SINGH BEDSIDE AT THIS TIME. UPDATES PROVIDED, NO NEW ORDERS RECEIVED. CPAP TO BE CONTINUED OVER THE NEXT 3 DAYS.
--- NOTE | 2017-04-01 16:30 | NUR ---
LEVOPHED DECREASED TO 3 MCG/MIN AT THIS TIME DUE TO MAPS IN THE 50'S X3 READING. WILL CONTINUE TO MONITOR
--- NOTE | 2017-04-01 17:00 | NUR ---
LEVO TITRATED UP TO 5 MCG/MIN AT THIS TIME DUE TO MAP IN THE 50'S. WILL CONTINUE TO MONITOR PATIENT.
--- NOTE | 2017-04-01 18:00 | NUR ---
CPAP OFF AT THIS TIME, PATIENT PLACED ON AC MODE Vt 400, PEEP 7, RATE 14, FIO2 40. WILL CONTINUE TO MONITOR PATIENT.
--- NOTE | 2017-04-01 18:25 | NUR ---
LEVO TITRATED DOWN TO 3 MCG/MIN AT THIS TIME DUE TO MAP IN THE 80'S, WILL CONTINUE TO MONITOR PATIENT.
--- NOTE | 2017-04-01 18:52 | NUR ---
FENT RESTARTED AT 0.5 MCG/KG/HR AND VERSED AT 0.5 MG/HR PER DR. SINGH. PATIENT IS SETTING OFF LOW PRESSURE ALARMS ON VENT AND HAS BEEN SUCTIONED. WILL CONTINUE TO MONITOR PATIENT.
--- NOTE | 2017-04-01 19:13 | NUR ---
REPORT GIVEN TO NOC SHIFT SIRISHA HARDY. WILL ENDORSE CARE.
--- NOTE | 2017-04-01 19:25 | NUR ---
RECEIVED REPORT FROM HAYLEY GRIMM. ALL QUESTIONS AND CONCERNS ANSWERED. WILL ENDORSE ALL CARE.
--- NOTE | 2017-04-01 19:55 | NUR ---
PT IS INTUABTED AND SEDATED VERSED 0.5 MG/HR AND FENTANYL 0.3 MG/HR. PT OPENS EYES TO TACTILE STIMULI. UNABLE TO FOLLOW COMMANDS, CANNOT MAKE NEEDS KNOWN. RIJ IN PLACE, DRESSING CDI, ALL PORTS PATENT AND INFUSING WELL. RUNNING NS 150 ML/HR, LEVOPHED 4 MCG/MIN. OGT IN PLACE. NUTREM PULM 30 ML/HR WITH FWF 50 ML Q6H. ETT IN PLACE AND SECURED, ATTACHED TO VENT, 7.5 ETT/ 22 LL. VENT SETTINGS: AC MODE, VT 400, FIO2 40%, PEEP 5, RATE 14. FINE CRACKLES HEARD TO BILAT UPPER BASES AND DIMINISHED BREATH SOUNDS TO BILAT BASES OF LOBES HEARD UPON AUSCULTATION. CHEST RISE IS EQUAL AND SYMMETRICAL. ABD IS ROUND AND FIRM, HYPOACTIVE BOWEL SOUNDS HEARD X4 QUADRANTS. LAMAR CATHETER IN PLACE, CLEAN AND PATENT, DRAINING YELLOW URINE. SCORTAL EDEMA NOTED. TRACE EDEMA NOTED TO BUE. CAP REFILL <3 TO BUE AND BLE. SKIN IS COOL AND DRY, NO SKIN TEARS NOTED. ORAL CARE PROVIDED. HOB 30 DEGREES. BP 102/53, MAP 88, HR 88, RR 14, TEMP 97.2, O2 93%, NO S/S OF PAIN OR DISTRESS NOTED AT THIS TIME. WILL CONTINUE TO MONITOR FOR ANY ACUTE CHANGES.
--- NOTE | 2017-04-01 21:30 | NUR ---
MAP 62, BP 84/52. LEVOPHED TITRATED TO 5 MCG/MIN. WILL CONTINUE TO MONITOR.
--- NOTE | 2017-04-01 23:47 | NUR ---
VERSED TURNED OFF D/T LOW BP. WILL CONTINUE TO MONITOR.
[2017-04-02] VITALS (17 sets, daily range): BP systolic 84–115; BP diastolic 48–83
--- NOTE | 2017-04-02 02:45 | NUR ---
MAP 70. PT REPOSITIONED ACCORDING TO PROTOCOL. NO S/S OF PAIN OR DISTRESS.
--- NOTE | 2017-04-02 04:00 | NUR ---
REASSESSMENT COMPLETE. NO CHANGES TO VENT SETTINGS. MAP 59 LEVO TIRTRATED TO 5 MCG/MIN. WILL CONTINUE TO MONITOR FOR ANY ACUTE CHANGES.
[2017-04-02 05:22] LABS: PLATELET COUNT 344 x10^3mcL (130-400)
[2017-04-02 05:25] LABS: BASOPHIL % 0 % (0-2); RED CELL DISTRIBUTION WIDTH 15.3 % (11.5-14.5)
[2017-04-02 05:31] LABS: CALCIUM 8.7 mg/dL (8.5-10.1); CHLORIDE SERUM 107 mmol/L (98-107); CREATININE SERUM 1.2 mg/dL (0.7-1.3); GFR1 > 60 mL/min; GLUCOSE SERUM 133 mg/dL (74-106); MAGNESIUM 1.9 mg/dL (1.8-2.4); PHOSPHOROUS 1.9 mg/dL (2.5-4.9); POTASSIUM SERUM 3.5 mmol/L (3.5-5.1); SODIUM SERUM 142 mmol/L (136-145)
--- NOTE | 2017-04-02 05:55 | NUR ---
DR WHITLEY AT BEDSIDE. UPDATES PROVIDED. NEW ORDERS RECEIEVED.
--- NOTE | 2017-04-02 07:19 | NUR ---
REPORT GIVEN TO KWAME GRIMM, ALL QUESTIONS AND CONCERNS ADRESSED. CARE ENDORSED.
--- NOTE | 2017-04-02 07:51 | NUR ---
FENTANYL SUSPENDED AT THIS TIME IN PREPARATION OF CPAP TODAY.
--- NOTE | 2017-04-02 08:32 | NUR ---
PT PUT ON CPAP: PEEP 5, PSV 12, FIO2 40%.
--- NOTE | 2017-04-02 09:12 | NUR ---
DR HERNANDEZ AND RESIDENTS ON UNIT TO DO ROUNDS. UPDATED ON PT STATUS, QUESTIONS ANSWERED.
--- NOTE | 2017-04-02 09:34 | NUR ---
TUBE FEEDING PUT ON HOLD DURING CPAP TRIAL.
--- NOTE | 2017-04-02 10:05 | NUR ---
PT 100/67 MAP 800 HR 103 TIATRATE LEVO TO 3MCG/MIN.
--- NOTE | 2017-04-02 11:03 | NUR ---
BP 82/54 MAP 63 TIARATE LEVO TO 3MCG/MIN.
--- NOTE | 2017-04-02 12:00 | NUR ---
DR. WHITLEY IS MADE AWARE OF MRSA IN SPECTUM.
--- NOTE | 2017-04-02 12:09 | NUR ---
PT RECIEVING BREATHING TX.
--- NOTE | 2017-04-02 12:54 | NUR ---
PT BEGAN TO DESATURATE TO 88-89% ON CPAP. PT PUT BACK ON AC/VCV BY JONI RT: RATE 14, TV 400, PEEP 5, FIO2 40%.
--- NOTE | 2017-04-02 12:55 | NUR ---
TUBE FEEDING RESUMED @ 30 CC/HR.
--- NOTE | 2017-04-02 12:57 | NUR ---
LEVOPHED TITATED TO 5 MCG/MIN, MAP = 64.
--- NOTE | 2017-04-02 13:30 | NUR ---
TALKING TO MARY LANGE DECISTION MAKER ABOUT PATIENTS STATUS AND PLAN OF CARE, DISCUSSED CODE STATUS PATIENT IS NOT MODIFIED CODE, ALL QUESTIONS AND CONCERNS ADDRESSED, WILL CONTINUE TO MONITOR.
--- NOTE | 2017-04-02 13:50 | NUR ---
FENTANYL DRIP RESUMED @ 0.3 MCG/KG/HR.
--- NOTE | 2017-04-02 14:45 | NUR ---
* ST D/C ORDER * Clinician attempting to complete skilled GOVERNMENT INSTRUCTOR swallow/dysphagia treatment. Upon checking in with Nsg in ICU, Nsg reporting pt intubated and thus is not appropriate for PO intake. Clinician clarifying pt is undergoing CPAP trials at this time, with Nsg reporting CPAP trials are a mechanical ventilator setting and pt tolerating CPAP trials for 4 hours today, but is currently intubated. Clinician thus informing Nsg pt will be DCed from skilled GOVERNMENT INSTRUCTOR services and may be followed up by ST at a later time if ordered by MD upon pt's extubation, with nsg agreeable with clinician's recommendations. Pt and Nsg education completed regarding recommendations upon pt's D/C from skilled GOVERNMENT INSTRUCTOR services, with pt sedated secondary to intubation and with Nsg verbalizing understanding of clinician's recommendations. No further ST follow up recommended at this time. D/C skilled GOVERNMENT INSTRUCTOR services secondary to pt currently intubated. PVE for consult with Nsg in clinician's attempt to provide bedside swallow tx with pt. 15:30-15:45
--- NOTE | 2017-04-02 15:16 | NUR ---
DR. SINGH AT BEDSIDE TO DISCUSS PLAN OF CARE.
--- NOTE | 2017-04-02 15:20 | NUR ---
BP 101/64 MAP 77, TITRATED LEVOPHED TO 4MCG/MIN, 500ML BOLUS GIVEN PER ORDER, WILL CONTINUE TO MONITOR.
--- NOTE | 2017-04-02 15:58 | NUR ---
TEMPERATURE 100.0, COOLING MEASURES DONE, WILL CONTINUE TO MONITOR.
--- NOTE | 2017-04-02 16:12 | NUR ---
RT AT BEDSIDE GIVING BREATHING TREATMENT, PATIENT TOLERATING WELL, WILL CONTINUE TO MONITOR.
--- NOTE | 2017-04-02 18:30 | NUR ---
PT GIVEN FULL BED BATH. LINENS AND GOWN CHANGED. PT HAD SMALL LOOSE BM X1. CHG WIPES USED, LAMAR CARE DONE.
--- NOTE | 2017-04-02 19:21 | NUR ---
RECEIVED REPORT FROM KWAME GRIMM. WILL ENDORSE ALL CARE.
--- NOTE | 2017-04-02 19:45 | NUR ---
PT INTUBATED AND SEDATED ON FENTANYL 0.3 MG/HR. PT OPENS EYES SPONTANEOUSLY, TACTILE STIMULI. PT IS ABLE TO FOLLOW SIMPLE COMMANDS, CANNOT MAKE NEEDS KNOWN. RIJ IN PLACE, DRESSING CDI, ALL PORTS PATENT AND INFUSING WELL. NS RUNNIGN AT 150 ML/HR, LEVOPHED 4 MCG/MIN. OGT IN PLACE, RUNNING NUTREM PUL AT 30 ML/HR WITH FWF AT 50 ML Q6H. ETT IN PLACE AND SECURED, ATTACHED TO VENT, 7.5 ETT/22 LL. VENT SETTINGS: AC MODE, FIO2 40%, VT 400, PEEP 5, RATE 14. FINECRACKLES HEARD TO BILAT UPPER LOBES, DIMINISHED BREATH SOUNDS TO BILAT BASES OF LOBES HEARD UPON AUSCULTATION. CHEST RISE IS EQUAL AND SYMMETRICAL. ABD IS ROUND AND FIRM. HYPOACTIVE BOWEL SOUNDS X4 QUADRANTS. LAMAR CATHETER IN PLACE, CLEAN AND PATENT, DRAINING [place] COLORED URINE. SCROTAL EDEMA NOTED. SKIN IS WARM AND DRY. TRACE EDEMA NOTED TO BUE. CAP REFILL <3 BUE AND BLE. NO SKIN TEARS NOTED. PT REPOSITIONED. ORAL CARE PROVIDED HOB 30 DEGREES. BP 111/66, MAP 84, HR 105, TEMP 99.5, O2 98%, RR 14, NO S/S OF PAIN OR DISTRESS NOTED. WILL CONTINUE TO MONITOR FOR ANY ACUTE CHANGES.
--- NOTE | 2017-04-02 21:55 | NUR ---
RT AT BEDSIDE. FIO2 35%. WILL CONTINUE TO MONITOR.
[2017-04-03] VITALS (19 sets, daily range): BP systolic 84–120; BP diastolic 53–67
--- NOTE | 2017-04-03 00:15 | NUR ---
PT REPOSITIONED PER PROTOCOL. SUCTIONED SCANT AMOUNT OF BLOOD TINGED SPUTUM FROM ETT. WILL CONTINUE TO MONITOR.
--- NOTE | 2017-04-03 03:42 | NUR ---
TEMP 101.2. TYLENOL SUPPOS ADMINISTERED. WILL CONTINUE TO MONITOR.
[2017-04-03 05:15] LABS: PLATELET COUNT 327 x10^3mcL (130-400)
[2017-04-03 05:19] LABS: CALCIUM 8.2 mg/dL (8.5-10.1); CARBON DIOXIDE 31.9 mmol/L (21-32); CHLORIDE SERUM 107 mmol/L (98-107); CREATININE SERUM 1.1 mg/dL (0.7-1.3); GFR1 > 60 mL/min; GLUCOSE SERUM 90 mg/dL (74-106); MAGNESIUM 1.6 mg/dL (1.8-2.4); POTASSIUM SERUM 3.5 mmol/L (3.5-5.1); SODIUM SERUM 143 mmol/L (136-145)
[2017-04-03 05:21] LABS: RED CELL DISTRIBUTION WIDTH 14.8 % (11.5-14.5)
[2017-04-03 05:39] LABS: BAND NEUTROPHIL 4 % (0-10); METAMYELOCTE 7 % (0-2); MONOCYTE 4 % (0-7); MYELOCYTE 2 % (0-2); SEGMENTED NEUTROPHILS 78 % (37-75)
[2017-04-03 05:42] LABS: rbc morphology (normal/abnorm) ABNORMAL (NORMAL)
[2017-04-03 05:44] LABS: PLATELET MORPHOLOGY FEW LARGE PLATELETS
--- NOTE | 2017-04-03 06:13 | NUR ---
DR WHITLEY AT BEDSIDE. UPDATES PROVIDED. NEW ORDERS RECEIVED. WILL CONTINUE TO MONITOR.
--- NOTE | 2017-04-03 07:25 | NUR ---
RECEIVED PT WITH FENTANYL INFUSING @ 0.3 MCG/KG/MIN. FENTANYL DRIP SUSPENDED AT THIS TIME FOR CPAP TODAY.
--- NOTE | 2017-04-03 07:30 | NUR ---
RECEIVED PATINET FROM SIRISHA HARDY, SEE SHIFT ASSESSMENT.
--- NOTE | 2017-04-03 08:10 | NUR ---
PT PUT ON CPAP 09/16, FIO2 35%. VT 400, RR 21, HR 99, SPO2 94%, BP 98/64. RN NOTIFIED. WILL MONITOR.
--- NOTE | 2017-04-03 08:12 | NUR ---
PATIENT PLACED ON CPAP MODE BY RT, WILL CONTINUE TO MONITOR.
--- NOTE | 2017-04-03 08:45 | NUR ---
HELD TUBE FEEDING FOR CPAP TRIL, WILL CONTINUE TO MONITOR.
--- NOTE | 2017-04-03 09:01 | NUR ---
BP 98/65 MAP 72 DECREASED LEVOPHED TO 3 MCG/MIN, WILL CONTINUE TO MONITOR.
--- NOTE | 2017-04-03 09:05 | NUR ---
PATIENT ROUNDS WITH DR. FRANCOIS AND RESIDENTS. PRIMARY NURSE AND CHARGE NURSE AT BEDSIDE. UPDATES PROVIDED. POC DISCUSSED. WILL CONTINUE TO MONITOR.
--- NOTE | 2017-04-03 09:46 | NUR ---
ATTEMPTED TO TITTATE LEVOPHED DOWN BUT BP 83/55 MAP 61, TITRATED LEVOPHED TO 4MCG/MIN, WILL CONTINUE TO MONITOR.
--- NOTE | 2017-04-03 10:32 | NUR ---
CAREGIVER AT BEDSIDE, WILL CONTINUE TO MONITOR.
--- NOTE | 2017-04-03 11:30 | NUR ---
PATIENT WITH EYES CLOSED EASILY AROUSABLE, ABLE TO FOLLOW SIMPLE COMMANDS, PATIENT CONTINUES ON VENTILAOR CPAP MODE SAME SETTINGS, RESPIRATIONS EVEN AND UNLABORED. RIJ PATENT TO ALL PORTS INFUSING NS AT 50ML/HR, LEVOPHED INSUING AT 4MCG/MIN, AND SALINE LOCK TO LAC/RH. NO N/V/D NOTED AND NO BM AT THIS MOMENT. BED TO LOWEST POSITION, SIDE RAILS UP X2, FALL PRECAUTIONS IN PLACE, AND WILL CONTINUE TO MONITOR.
--- NOTE | 2017-04-03 11:57 | NUR ---
RT AT BEDSIDE GIVE BREATHING TREATMENT, WILL CONTINUE TO MONITOR.
--- NOTE | 2017-04-03 15:00 | NUR ---
Pt BECAME TIRED. VT DROPPED INTO 100'S TO 200'S, AND RR UP TO 30 BPM. Pt WAS PLACED BACK ON A/C SETTINGS AT THIS TIME. A/C 14, VT 400, PEEP +5, FIO2 45%. RN NOTIFIED, WILL MONITOR.
--- NOTE | 2017-04-03 15:01 | NUR ---
PT PUT ON AC/VCV BY DORA RT: RATE 14, TV 400, PEEP 5, FIO2 35%.
--- NOTE | 2017-04-03 15:07 | NUR ---
NUTREN PULM RESUMED @ 30 CC/HR, 50 CC FWF Q6H. FENTANYL DRIP RESUMED @ 0.3 MCG/KG/HR.
--- NOTE | 2017-04-03 15:16 | NUR ---
FENTANYL DRIP SUSPENDED AT THIS TIME, MAP = 57. LEVOPHED TITRATED TO 1 MCG/MIN.
--- NOTE | 2017-04-03 15:30 | NUR ---
PATIENT WITH EYES OPEN EASILY AROUSABLE, ABLE TO FOLLOW SIMPLE COMMANDS, PATIENT ON VENTILAOR AC MODE SAME SETTINGS, RESPIRATIONS EVEN AND UNLABORED. RIJ PATENT TO ALL PORTS INFUSING NS AT 50ML/HR, LEVOPHED INSUING AT 5MCG/MIN, AND SALINE LOCK TO LAC/RH. NO N/V/D NOTED AND NO BM AT THIS MOMENT. BED TO LOWEST POSITION, SIDE RAILS UP X2, FALL PRECAUTIONS IN PLACE, AND WILL CONTINUE TO MONITOR.
--- NOTE | 2017-04-03 16:25 | NUR ---
BP 107/61 MAP 81 TITRATED LEVOPHED TO 4MCG/MIN, WILL CONTINUE TO MONITOR.
--- NOTE | 2017-04-03 17:02 | NUR ---
BP 83/55 MAP 61 TITRATED LEVOPHED TO 5MCG/MIN, AT BEDSIDE UPDATED ON PATIENTS STATUS, ALL QUESTIONS ANSWERED, WILL CONTINUE TO MONITOR.
--- NOTE | 2017-04-03 17:05 | NUR ---
BED BATH DONE, PATIENT HAD ONE SEMI SOLID BROWN BM, WILL CONTINUE TO MONITOR.
--- NOTE | 2017-04-03 17:35 | NUR ---
Pt PLACED BACK ONTO CPAP SETTINGS TO PERFORM WEANING PARAMETERS PER DR. SINGH. PSV 12, PEEP +5, FIO2 35%. RN NOTIFIED. WILL MONITOR.
--- NOTE | 2017-04-03 17:55 | NUR ---
Pt PLACED BACK ON A/C SETTINGS TO REST OVER NIGHT. WILL PUT Pt ON CPAP AND ATTEMPT TO OBTAIN WEANING PARAMETERS AGAIN TOMORROW MORNING.
--- NOTE | 2017-04-03 18:56 | NUR ---
PATIENT SITTING UP IN BED, ON VENTILATOR WITH SAME SETTING, NO DISTERSS NOTED, RESPIRATIONS EVEN AND UNLABORED, RIJ CDI WITH ALL PORTS PATENT INFUSING LEVOPHED AT 5MCG/MIN AND NS AT 50ML/HR. SALINE LOCK TO LAC/RH CDI. TUBE FEEDING INFUING AT 30ML/HR WITH [id number] FLUSH. PATIENT TURNED Q2H OR NEEDED, ALL NEEDS MET, FALL PRECAUTIONS IN PLACE, AND WILL ENDORSE TO NIGHT NURSE.
--- NOTE | 2017-04-03 19:11 | NUR ---
RECEIVED REPORT FROM SIRISHA MATHEW, ALL QUESTIONS ADDRESSED WILL TAKE OVER CARE.
--- NOTE | 2017-04-03 19:42 | NUR ---
EYES OPEN TO VERBAL STIMULI, PUPILS REACTIVE SLUGGISH, NO S/S OF HEADACHE, GENERALIZED WEAKNESS, FULL PASSIVE ROM, LIMITED ACTIVE ROM, ON VENT AC MODE SIZE 7.5, 22LL, NO DRAINAGE EENT, ORAL MUCOSA PINK AND MOISTE, ORAL CARE PROVIDED, NO COUGH BLOOD TINGED SECRETIONS SUCTIONED, RIJ INFUSING. FIO2 35, VT 400, PEEP 5, RR 14, RESPIRATIONS EQUAL AND UNLABORED, LUNGS RHONCHI THROUGHOUT, NO DISTRESS, HR 100, BP 104/66, MAP 80, CVP 6, CHEST WALL STABLE, S1S2 AUSCULTATED, NO CP, DIZZINESS, OR SYNCOPE. SKIN APPROPRIATE FOR ETHNICITY, WARM AND DRY, CAP REFILL <3, PULSES MODERATE, EDEMA +2 BUE/BLE. NO CONTRACTURES, PT HAS DOWN SYNDROME. NUTREN PULMONARY INFUSING 30ML/HR, FWF 50ML Q6, NO RESIDUAL, PT TOLERATING NO N/V. ABD SOFT, ROUND, DISTENDED, BOWEL SOUNDS ACTIVE X4, NO BM. F/C IN PLACE DRAINING TO GRAVITY, URINE MITA, NO PENIAL EDEMA OR DRAINAGE. PT CALM AND COOPERATIVE, HAS FAMILY SUPPORT, WILL CONTINUE TO MONITOR.
--- NOTE | 2017-04-03 20:29 | NUR ---
PT HAD LOOSE BM, WILL CONTINUE TO MONITOR
--- NOTE | 2017-04-03 21:04 | NUR ---
DR OLIVAREZ AT BEDSIDE, NO NEW ORDERS, WILL CONTINUE TO MONITOR.
--- NOTE | 2017-04-03 23:34 | NUR ---
LEVOPHED TITRATED TO 4MCG, WILL CONTINUE TO MONITOR
--- NOTE | 2017-04-03 23:59 | NUR ---
RT BABS AT BEDSIDE FIO2 TITRATED TO 30, WILL CONTINUE TO MONITOR.
[2017-04-04] VITALS (17 sets, daily range): BP systolic 77–108; BP diastolic 52–70
--- NOTE | 2017-04-04 01:10 | NUR ---
LEVO TITRATED TO 3MCG, WILL CONTINUE TO MONITOR
--- NOTE | 2017-04-04 03:18 | NUR ---
TITRATED LEVOPHED TO 4MCG, WILL CONTINUE TO MONITOR.
[2017-04-04 04:52] LABS: BASOPHIL % 0.1 % (0-2); PLATELET COUNT 297 x10^3mcL (130-400)
[2017-04-04 05:05] LABS: RED CELL DISTRIBUTION WIDTH 15.1 % (11.5-14.5)
[2017-04-04 05:06] LABS: CALCIUM 7.9 mg/dL (8.5-10.1); CARBON DIOXIDE 33.1 mmol/L (21-32); CHLORIDE SERUM 102 mmol/L (98-107); GFR1 > 60 mL/min; GLUCOSE SERUM 109 mg/dL (74-106); MAGNESIUM 1.6 mg/dL (1.8-2.4); PHOSPHOROUS 2.8 mg/dL (2.5-4.9); POTASSIUM SERUM 3.2 mmol/L (3.5-5.1); SODIUM SERUM 139 mmol/L (136-145)
--- NOTE | 2017-04-04 05:50 | NUR ---
DR WHITLEY AT BEDSIDE, NS REDUCED TO 20ML/HR. K RIDER AND MAG ORDERED. BED BATH GIVEN CHG WIPES USED, GOWN AND LINEN CHANGED, WILL CONTINUE TO MONITOR.
--- NOTE | 2017-04-04 07:15 | NUR ---
REPORT RECEIVED FROM [facility] SHIFT RN WILLIAMS. UPDATES PROVIDED, ALL QUESTIONS ANSWERED ALL CONCERNS ADDRESSED, WILL ASSUME CARE, ASSESS SHORTLY.
--- NOTE | 2017-04-04 07:15 | NUR ---
REPORT GIVEN TO SIRISHA QUINN, ALL QUESTIONS ADDRESSED, WILL ENDORSE CARE.
--- NOTE | 2017-04-04 07:15 | NUR ---
DR. KNUTSON AT BEDSIDE, UPDATES PROVIDED, ALL QUESTIONS ADDRESSED.
--- NOTE | 2017-04-04 07:30 | NUR ---
RECEIVED PT INTUBATED ORALLY ETT 7.5 22LL. NO SEDATION AT THIS TIME. OPENS EYES SPONTANEOUSLY, OPENS EYES TO TACTILE AND VERBAL STIMULI. PT FOLLOWS SIMPLE COMMANDS, SUCH "SQUEEZE MY HAND". RT PUPIL 4MM SLUGGISH REACTION, LT PUPIL 3MM SLUGGISH REACTION. OGT IN PLACE AND SECURED. NUTREN PULMONARY FEEDING INFUSING AT 30ML/HR FWF 50ML Q4H. EASY AND UNLABORED BREATHING VIA VENT. VENT SETTINGS: AC MODE VT400 FIO2 30 RATE 14 PEEP 5. LUNG SOUNDS RHONCHI ZACK. SYMMETRICAL CHEST EXPANSION. ORAL CARE PROVIDED PER VAP PROTOCOL. CARDIAC SCOPE SHOWS SR, AUSCULTATED S1, S2. NO ECTOPIES OBSERVED. RIJ TLC; NS INFUSING @20ML/HR. PT CONNECTED TO CVP MONITORING. CVP READING 12 AT THIS TIME, FOB CALIBRATED PER PROTOCOL. ABD SOFT AND ROUND, ACTIVE BOWEL SOUNDS X 4, SYMMETRICAL AND NONTENDER TO PALPAPTION, PER FLACC SCALE. SKIN DRY, WTT, INTACT. LAMAR CATHETER TO GRAVITY DRAINAGE BAG, DRAINING CLEAR YELLOW URINE. NO PENILE DISCHARGE/BLEEDING AT THIS TIME. BED ON LOW POSITION, HOB 30 DEGREES, CALL LIGHT WITHIN REACH. WILL CONTINUE TO MONITOR.
--- NOTE | 2017-04-04 08:30 | NUR ---
DORA RT BEDSIDE WITH PT AT THIS TIME FOR BREATHING TREATMENT. WILL CONTINUE TO MONITOR.
--- NOTE | 2017-04-04 08:38 | NUR ---
PATIENT ROUNDS WITH DR. CASTRO AND RESIDENTS. CHARGE NURSE AND PRIMARY NURSE AT BEDSIDE. UPDATES PROVIDED AND POC DISCUSSED. WILL CONTINUE TO MONITOR.
--- NOTE | 2017-04-04 08:40 | NUR ---
DR. HERNANDEZ AND RESIDENTS ROUNDING AT THIS TIME. UPDATES PROVIDED, NO NEW ORDERS RECEIVED. WILL CONTINUE TO MONITOR.
--- NOTE | 2017-04-04 08:41 | NUR ---
LEVOPHED DECREASED TO 3MG/HR DUE TO MAPS IN THE LOW 80S, HIGH 70S X 3 CONSECUTIVE READINGS.
--- NOTE | 2017-04-04 08:50 | NUR ---
Pt PLACED ON CPAP 09/16 AT THIS TIME. VT 381, RR 19, O2 95%, HR 88, BP 108/74. RN NOTIFIED. WILL MONITOR.
--- NOTE | 2017-04-04 08:50 | NUR ---
CPAP INITIATED AT THIS TIME 09/[address] SINGH. WILL CONTINUE TO MONITOR.
--- NOTE | 2017-04-04 10:30 | NUR ---
ATTEMPTED TO OBTAIN WEANING PARAMETERS AT THIS TIME. Pt WAS BREATHING IN LOW 200'S AND RR INCREASED TO 32 BPM. WILL TRY AGAIN LATER.
--- NOTE | 2017-04-04 13:40 | NUR ---
LEVOPHED DECREASED TO 2 MCG/MIN AT THIS TIME DUE TO MAPS IN THE HIGH 70'S CONSISTENTL X3 READINGS. WILL CONTINUE TO MONITOR PATIENT.
--- NOTE | 2017-04-04 13:55 | NUR ---
DR. SINGH BEDSIDE WITH PATIENT AT THIS TIME. UPDATES PROVIDED, ALL QUESTIONS ANSWERED ALL CONCERNS ADDRESSED. TUBE FEED FWF TO BE INCREASED TO Q6 HOURS. WILL CONTINUE TO MONITOR PATIENT.
--- NOTE | 2017-04-04 14:52 | NUR ---
CRITICAL LAB RESULT RECEIVED PT STOOL CDIFF POSITIVE. CONTACT PRECAUTIONS INITIATED. DOCTOR ANGI PAGED AT THIS TIME. WILL AWAIT CALL BACK AND ORDERS.
--- NOTE | 2017-04-04 15:04 | NUR ---
LEVOPHED DECREASED TO 3 MG/HR DUE TO MAPS IN THE LOW 80S, HIGH 70S CONSISTENTLY X 3 READINGS.
--- NOTE | 2017-04-04 15:12 | NUR ---
RECEIVED CALL FROM DR. WHITLEY, AWARE OF POSITIVE CDIFF RESULT. VANCOMYCIN PO TO BE ORDERED.
--- NOTE | 2017-04-04 17:50 | NUR ---
PATIENT PLACED BACK ON AC MODE AT THIS TIME, Vt 400, FIO2 30%, PEEP 5, RATE 14. WILL CONTINUE TO MONITOR PATIENT.
--- NOTE | 2017-04-04 19:10 | NUR ---
REPORT WAS GIVEN FROM AM SHIFT RN, ALL CARE ENDORSSED.
--- NOTE | 2017-04-04 19:24 | NUR ---
RECEIVE PT INTUBATED NOT SEDATED, NO RESTRAINED, PT HAS MENTAL RETARTED, BUT PT IS CALM AT THE TIME, LUNG SOUND CONGESTED AND WHEEZING BILATERAL, DIMINISHED AT BASED. PT IS ON VENT AC MOD VT 400, RATE IS 14, PEEP 5, FIO2 IS 30 %, PT PO2 IS 98%, RIGHT IJ CENTRAL LINE INTACT, CVP IS 7 AT THIS TIME, OGT IN PLACE, NORMAL SALINE AT 20 ML/HR. PT IS ON LEVOPHED DRIP 2 RAJESH/MIN AT THIS TIME. BOWEL SOUND ACTIVE ALL 4 QUADRANTS, PT IS ON LAMAR CATH TO GRAVITY, URINE IS YELLOW. PT IS ON NUTREN PULM AT 30 ML/HR. FWF AT 50 ML Q4H. REPOSITION PT EVERY 2 HOURS NEEDED AND PER PROTOCAL, PT HAS GENERALIZED +1 EDEMA, BUE, AND BLE. PT IS ON ISOLATION DROPLET AND CONTACT. SAFETY IS IN PLACE, WILL CONTINUE TO MONITOR.
--- NOTE | 2017-04-04 20:00 | NUR ---
RT AT PT BEDSIDE PER PROTOCAL.
--- NOTE | 2017-04-04 20:01 | NUR ---
ORAL CARE IS PROVIED, AND REPOSITION PT WITH PILLOWS.
--- NOTE | 2017-04-04 22:08 | NUR ---
RT AT PT'S BEDSIDE PER PROTOCAL.
--- NOTE | 2017-04-04 22:09 | NUR ---
PT IS RESTING AT BED, CONFORTABLLY, NO DISTRESS NOTED. B/P 102/65, MAP 77, PT PO2 98%, CONTINUE TO MONITOR.
--- NOTE | 2017-04-04 23:00 | NUR ---
TEMP 99.5 COOLING MEASURED APPLIED, WILL CONTINUE TO MONITOR.
--- NOTE | 2017-04-04 23:09 | NUR ---
LAB IS DRAW FROM CENTRAL LINE FOR VANC 11PM
--- NOTE | 2017-04-04 23:43 | NUR ---
PAGE DR. LACKEY REGARDING THE VANCO THROUGH RESULT 17.2, HOLD VANCO FOR NOW AND WAIT FOR DR. LACKEY CALL BACK FOR NEW ORDER. WILL CONTINUE TO MONITOR.
--- NOTE | 2017-04-04 23:52 | NUR ---
TALKED TO DR. STAFFORD, INFORM THE VANCO THROUGH, ORDER TO HOLD THE VANCO IV BUT GIVE THE VANCO PO RIGHT NOW.
[2017-04-05] VITALS (14 sets, daily range): BP systolic 82–115; BP diastolic 48–77
--- NOTE | 2017-04-05 | NUR ---
REASSESSMENT IS COMPLETED. PT IS INTUBATED AND NOT SEDEATED. PT IS MR, ALERT CAN FOLLOWS SIMPLE COMAND. VENTED WITH AC MODE VT 400, R 14, PEEP 5, FIO2 30%. PT SAT 98% AT TIME.BOWEL SOUND ACTIVE X4 Q. ON NUTREN PULM AT 30ML/HR, FWF AT [id number]. NO RESIDUAL NOTED AT TIME. LAMAR IN PLACE, DRAINED WITH YELLOW COLOR URINE. EPOSITION PER PROTOCOL. SAFETY IN PLACE. WILL CONTINUE TO MONITOR.
--- NOTE | 2017-04-05 | NUR ---
RT AT PT BEDSIDE PER PROTOCOL.
--- NOTE | 2017-04-05 00:10 | NUR ---
TEMP 99.9 COLLING MEASURED APPLIED, AND TYLENOL 650MG GIVEN VIA OGT. WILL CONTINUE TO MONITOR.
--- NOTE | 2017-04-05 00:45 | NUR ---
DR SARAVIA IN THE UNIT, UPDATED ON PT'S STATUS. DR SARAVIA WANT TO REPORT THE THROUGH 17.2 TO PHARMACY TOMORROW WHEN THEY OPEN.
--- NOTE | 2017-04-05 00:50 | NUR ---
WE WILL REPORT THE THROUGH TO PHARMACY IN THE MORNING PER DR SARAVIA ORDER.
--- NOTE | 2017-04-05 01:04 | NUR ---
TEMP IS 98.9, WILL CONTINUE TO MONITOR.
--- NOTE | 2017-04-05 01:05 | NUR ---
CVP 9
--- NOTE | 2017-04-05 02:00 | NUR ---
RT AT PT BEDSIDE PER PROTOCOL.
--- NOTE | 2017-04-05 02:05 | NUR ---
RT IS AT PT'S BEDSIDE, PT HAS NO DISTRESS NOTED. WILL CONTINUE TO MONITOR THE PT.
--- NOTE | 2017-04-05 02:43 | NUR ---
B/P IS 83/41 MAP 61, INCREASE LEVOPHER TO 3MCG/MIN, WILL CONTINUE TO MONITOR.
--- NOTE | 2017-04-05 03:00 | NUR ---
FULL BATH GIVEN AND BED SHEETS CHANGES. PT IS CDI.
--- NOTE | 2017-04-05 03:26 | NUR ---
PT B/P IS 104/65 MAP 78, WILL CONTINUE TO MONITOR THE PT.
--- NOTE | 2017-04-05 04:00 | NUR ---
RT AT PT BEDSIDE PER PROTOCOL.
--- NOTE | 2017-04-05 04:30 | NUR ---
LARGE BM BROWN WITH LOOSE STOOL. CLEAN PT AND SPONGE BATH GIVEN. PT IS CDI
--- NOTE | 2017-04-05 04:41 | NUR ---
BLOOD DRAWN FROM [facility] FOR MORNING LAB.
[2017-04-05 04:45] LABS: PLATELET COUNT 292 x10^3mcL (130-400)
[2017-04-05 04:46] LABS: BASOPHIL % 0 % (0-2); RED CELL DISTRIBUTION WIDTH 15.1 % (11.5-14.5)
[2017-04-05 04:55] LABS: CARBON DIOXIDE 32.2 mmol/L (21-32); CHLORIDE SERUM 102 mmol/L (98-107); GFR1 > 60 mL/min; GLUCOSE SERUM 105 mg/dL (74-106); PHOSPHOROUS 3.7 mg/dL (2.5-4.9); POTASSIUM SERUM 3.5 mmol/L (3.5-5.1); SODIUM SERUM 140 mmol/L (136-145)
--- NOTE | 2017-04-05 05:09 | NUR ---
PT IS AWAKE, ALERT, ABLE TO FOLLOW SIMPLE COMMAND, VENT IS IN PLACE, NO CHANGE SETTING, OGT FEEDING IS NO CHANGE. PT HAS LOW OUTPUT 200ML/HR, WILL AWARE. PT IS CALM AT THIS TIME, REPOSITION PT PROTOCAL, WILL CONTINUE TO MONITOR.
--- NOTE | 2017-04-05 05:31 | NUR ---
LAMAR CARE PROVIDED, PT TOLERATED WELL, WILL CONTINUE TO MONITOR.
--- NOTE | 2017-04-05 05:45 | NUR ---
DR WHITLEY IN UNIT, UPDATED ON PT'S STATUS. NEW ORDER OF LASIX 40MG IVP. WE CARRY OUT THE ORDER.
--- NOTE | 2017-04-05 06:05 | NUR ---
DR KNUTSON IN UNIT, UPDATED ON PT'S STATUS. DR KNUTSON AT PT BED SIDE ASSESS PT.
--- NOTE | 2017-04-05 06:35 | NUR ---
CALL THE PHARMACY AND TALKED TO PRINCESS ABOUT THROUGH LEVEL17.[address] SARAVIA. PRINCESS AWARED WE HELD VANCO IV, AND GAVE VANCO PO PER DR VALENCIA, WELL DR SARAVIA AWARED.
--- NOTE | 2017-04-05 07:14 | NUR ---
ENDORSE REPORT TO NEXT SHIFT RN.
--- NOTE | 2017-04-05 07:15 | NUR ---
RECEIVED REPORT FROM [facility] SHIFT RN CASSI AND DEISY. UPDATES PROVIDED. WILL ASSUME CARE.
--- NOTE | 2017-04-05 07:20 | NUR ---
RECEIVED PT INTUBATED ORALLY ETT 7.5 22LL. NO SEDATION AT THIS TIME. NO RESTRAINTS. OPENS EYES SPONTANEOUSLY, OPENS EYES TO TACTILE AND VERBAL STIMULI. PT FOLLOWS SIMPLE COMMANDS, SQUEEZE MY HAND. RT PUPIL 4MM SLUGGISH REACTION, LT PUPIL 3MM SLUGGISH REACTION. OGT IN PLACE AND SECURED. NUTREN PULMONARY FEEDING INFUSING AT 30ML/HR FWF 50ML Q4H. EASY AND UNLABORED BREATHING VIA VENT. VENT SETTINGS: AC MODE VT400 FIO2 30 RATE 14 PEEP 5. LUNG SOUNDS RHONCHI ZACK. SYMMETRICAL CHEST EXPANSION. ORAL CARE PROVIDED PER VAP PROTOCOL. CARDIAC SCOPE SHOWS SR, AUSCULTATED S1, S2. NO ECTOPIES OBSERVED. RIJ TLC; NS INFUSING @20ML/HR. PT CONNECTED TO CVP MONITORING. CVP READING 11 AT THIS TIME, FOB CALIBRATED PER PROTOCOL. ABD SOFT AND ROUND, ACTIVE BOWEL SOUNDS X 4, SYMMETRICAL AND NONTENDER TO PALPAPTION, PER FLACC SCALE. BM X 1, SOFT AND BROWN. SKIN DRY, WTT, INTACT. LAMAR CATHETER TO GRAVITY DRAINAGE BAG, DRAINING CLEAR YELLOW URINE, SEDIMENTS NOTED. NO PENILE DISCHARGE/BLEEDING AT THIS TIME. BED ON LOW POSITION, HOB 30 DEGREES, CALL LIGHT WITHIN REACH. WILL CONTINUE TO MONITOR.
--- NOTE | 2017-04-05 07:34 | NUR ---
RECEIVED REPORT FROM AROLDO YE.
--- NOTE | 2017-04-05 08:11 | NUR ---
PATIENT MAPS IN THE HIGH 70'S LOW 80'S CONSISTENTLY X3 READINGS. LEVOPHED TITRATED DOWN TO 2 MCG/MIN AT THIS TIME. WILL CONTINUE TO MONITOR PATIENT.
--- NOTE | 2017-04-05 08:15 | NUR ---
RT KACI BEDSIDE WITH PATIENT AT THIS TIME FOR BREATHING TREATMENT. WILL CONTINUE TO MONITOR.
--- NOTE | 2017-04-05 09:39 | NUR ---
DR. KAY ROUNDING AT THIS TIME WITH RESIDENTS. UPDATES PROVIDED, ALL QUESTIONS ANSWERED, ALL CONCERNS ADDRESSED. WILL CONTINUE TO MONITOR PATIENT.
--- NOTE | 2017-04-05 10:00 | NUR ---
CPAP INITIATED AT THIS TIME. CPAP 09/16. WILL CONTINUE TO MONITOR PATIENT.
--- NOTE | 2017-04-05 10:00 | NUR ---
RECEIVED TRANSFER REPORT FROM [facility] NURSE KEVAN, ALL QUESTIONS AND CONCERNS ADDRESSED.
--- NOTE | 2017-04-05 10:05 | NUR ---
RECEIVED PT IN ICU, BED ICU5 ACCOMPANIED BY [facility] NURSE AND CHARGE NURSE. PT TRANSFERRED VIA DRAW SHEET METHOD AND PLACED ON INCINERATOR OPERATOR. IV FLUIDS RESUMED, WILL ASSESS PATIENT'S NEEDS NEEDED.
--- NOTE | 2017-04-05 12:35 | NUR ---
TITRATED LEVOPHED TO 1MG/HR DUE TO CONSECUTIVE MAP READING IN THE 70S.
--- NOTE | 2017-04-05 17:02 | NUR ---
DR. AGOSTO BEDSIDE AT THIS TIME. UPDATES PROVIDED, ALL QUESTIONS ANSWERED ALL CONCERNS ADDRESSED. NO NEW ORDERS RECEIVED. WILL CONTINUE TO MONITOR PATIENT.
--- NOTE | 2017-04-05 17:11 | NUR ---
DR SARAVIA AT BEDSIDE, UPDATES PROVIDES, ALL QUESTIONS/CONCERNS ADDRESSED. WILL CONTINUE TO MONITOR
--- NOTE | 2017-04-05 17:44 | NUR ---
LEVOPHED TURNED OFF AT THIS TIME DUE TO MAPS IN THE HIGH 70'S CONSISTENTLY. WILL CONTINUE TO MONITOR PATIENT.
--- NOTE | 2017-04-05 19:10 | NUR ---
RT AT BEDSIDE TO CHANGE PT BACK TO AC MODE, RATE 14, VT 400, FIO2 30%, PEEP 5.
--- NOTE | 2017-04-05 19:20 | NUR ---
REPORT GIVEN TO NOC SHIFT RN. UPDATES PROVIDED, ALL QUESTIONS/CONCERNS ADDRESSED.
--- NOTE | 2017-04-05 19:41 | NUR ---
RECEIVED PT FROM AM SHIFT RN, PT IS AWAKE, NON VERBAL, FOLLOW VERY SIMPLE COMMMAND. PT IS ON VENT AC MOD, VT 400, FIO 30%, PEEP 5, RATE 14, PT LUNG SOUND CONGEST AND WHEEZING NIC, DIMINISHED BLL. BOWEL SOUND PRESENT ALL 4 QUADRANTS, NO DISTENTION, PEDAL PULSE PRESENT BOTH FEET, GENERALIZED +1 EDEMA, CENTRAL LINE AT RIGHT IJ, NS RUN AT 20ML/HR. PT IS ALSO ON OGT FEEDING, NUTREN PULM 30ML/HR, FWF 50ML Q4H. LAMAR CATH IN PLACE. URINE IS YELLOW AND CLEAN. ALL ADLS ASSIST, ALL NEED MET, CALL LIGHT IN REACH, WILL CONTINUE TO MONITOR.
--- NOTE | 2017-04-05 20:20 | NUR ---
RT AT BEDSIDE, BREATHING TREATMENT ADMINISTERED.
--- NOTE | 2017-04-05 21:50 | NUR ---
REPOSITION PT PROTOCAL.
--- NOTE | 2017-04-05 23:45 | NUR ---
ORAL CARE HAS BEEN PROVIDE, PT IS STABLE, B/P IS 97/64 MAP 75 AT THIS MOMENT, NO RESPIRATORY DISTRESSED. WILL CONTINUE TO MONITOR.
[2017-04-06] VITALS (19 sets, daily range): BP systolic 87–113; BP diastolic 46–65
--- NOTE | 2017-04-06 00:09 | NUR ---
RT AT BEDSIDE, BREATHING TREATMENT PROVIDED
--- NOTE | 2017-04-06 00:10 | NUR ---
RT AT BEDSIDE, BREATHING TREATMENT ADMINISTERED.
--- NOTE | 2017-04-06 02:28 | NUR ---
REPOSITION PT TO LEFT SIDE. WILL CONTINUE TO MONITOR THE PT.
--- NOTE | 2017-04-06 04:03 | NUR ---
REPOSITION PT AND ORAL CARE HAS BEEN PROVIDED, AND RT AT BEDSIDE BREATHING TREATMENT WAS PROVIDED. WILL CONTINUE TO MONITOR THE PT.
[2017-04-06 05:35] LABS: BASOPHIL % 0.4 % (0-2); PLATELET COUNT 279 x10^3mcL (130-400)
[2017-04-06 05:41] LABS: RED CELL DISTRIBUTION WIDTH 15.1 % (11.5-14.5)
[2017-04-06 05:42] LABS: CARBON DIOXIDE 33.9 mmol/L (21-32); CHLORIDE SERUM 101 mmol/L (98-107); GFR1 > 60 mL/min; GLUCOSE SERUM 96 mg/dL (74-106); MAGNESIUM 1.8 mg/dL (1.8-2.4); POTASSIUM SERUM 3.5 mmol/L (3.5-5.1); SODIUM SERUM 138 mmol/L (136-145)
--- NOTE | 2017-04-06 07:15 | NUR ---
ENDORSE CARE TO MORNING SHIFT RN.
--- NOTE | 2017-04-06 12:26 | NUR ---
BLOOD SUGAR AT THIS TIME AT 101 AND NO COVERAGE OR INTERVENTION INDICATED. REPOSITIONED ONF THE RIGHT SIDE AND WILL MONITOR. ISOLATION MAINTAINED FOR CDIFF AND FOR MRSA.
--- NOTE | 2017-04-06 13:41 | NUR ---
PATIEN ON C PAP AT THIS TIME ORDERED. SO FAR TOLERATED WELL. PATEITN HAS NOT HAD ANY STOOL SINCE THIS AM AND EMPTIED 1800CC OF URINE JUST NOW. PATEINT DOES NTO APPEAR IN ANY PAIN AND RESPIRATIONS ARE NOT LABORED AT THIS TIME.
--- NOTE | 2017-04-06 17:51 | NUR ---
PATIENT HAD ANOTHER LARGE STOOL AND CLEANSED THE PATIENT AND REPOSITIONED INDICATED. PATIENT TOLERATED WELL AND CONTINUE DON FEEDING AND MINIMAL RESIDUAL NOTED.
--- NOTE | 2017-04-06 19:13 | NUR ---
CALLED AND TALKED TO PHARMACIST REGARDING THE VANCO THROUGH IS 16.7, PHARMACIST STATE KEEP THE SAME DOSAGE.
--- NOTE | 2017-04-06 19:45 | NUR ---
JONI RT AT BEDSIDE, BREATHING TREATMENT ADMINISTERED.
--- NOTE | 2017-04-06 19:47 | NUR ---
RECEIVED PT FROM AM SHIFT RN, PT IS AWAKE, NON VERBAL, ABLE TO FOLLOW SIMPLE COMMAND. PT IS INTUBED BUT NOT SEDATED. VENT AT AC MOD, VT 400, RATE 14, PEEP 5, FIO2 30%, ETT 7.5, LL 22CM, PO2 94% AT THIS TIME, LUNG SOUND CONGESTED AND WHEEZING NIC, AND DIMINISHED BLL, BOWEL SOUND PRESENT ALL 4 QUADRANTS, NO DISTENTION, NO TENDER. PEDAL PULSE PRESENT BOTH FEET, GENERALIZED +1 EDEMA, CENTRAL LINE AT RIGHT IJ, DRESSING INTACT, OGT FEEDING, NUTRENT PULM RUN AT 30ML/HR, FWF 50ML Q4H, NO RESIDUAL NOTED AT THIS TIME, PT IS OFF LEVOPHED, B/P IS 91/52 (68), HR 94, ALL ADLS ASSIST, ALL NEED MET, CALL LIGHT IN REACH, WILL CONTINUE TO MONITOR.
--- NOTE | 2017-04-06 21:45 | NUR ---
REPOSITION PT PER PROTOCAL, WILL CONTINUE TO MONITOR PT.
--- NOTE | 2017-04-06 23:25 | NUR ---
ORAL CARE IS PROVIDED, RT IS AT BEDSIDE, BREATHING TREATMENT PROVIDED. WILL CONTINUE TO MONITOR THE PT.
[2017-04-07] VITALS (17 sets, daily range): BP systolic 77–129; BP diastolic 47–74; Ht 162.6 cm; Wt 71.9 kg
--- NOTE | 2017-04-07 03:17 | NUR ---
ORAL CARE HAS BEEN PROVIDED, PT TEMP 99.4, COOLING MEASURE HAS BEEN PROVIDED. WILL CONTINUE TO MONITOR THE PT.
--- NOTE | 2017-04-07 03:40 | NUR ---
RT AT BEDSIDE, BREATHING TREATMENT PROVIDED.
--- NOTE | 2017-04-07 04:53 | NUR ---
CARTON MACHINE OPERATOR AT BEDSIDE FOR MORNING LAB DRAW.
[2017-04-07 05:27] LABS: BASOPHIL % 0.3 % (0-2); PLATELET COUNT 286 x10^3mcL (130-400)
[2017-04-07 05:35] LABS: CALCIUM 8.1 mg/dL (8.5-10.1); CHLORIDE SERUM 101 mmol/L (98-107); CREATININE SERUM 1.1 mg/dL (0.7-1.3); GFR1 > 60 mL/min; GLUCOSE SERUM 99 mg/dL (74-106); MAGNESIUM 1.8 mg/dL (1.8-2.4); PHOSPHOROUS 4.2 mg/dL (2.5-4.9); POTASSIUM SERUM 3.7 mmol/L (3.5-5.1); RED CELL DISTRIBUTION WIDTH 15.1 % (11.5-14.5); SODIUM SERUM 137 mmol/L (136-145)
--- NOTE | 2017-04-07 05:42 | NUR ---
MORNING CARE HAS PROVIDED, LAMAR CARE HAS BEEN DONE, PT TOLERAED WELL, NO RESPIRATORY DISTRESS, STILL ON VENT AC MOD. PO2 97%, RESPOSITION PT PROTOCAL. WILL CONTINUE TO MONITOR THE PT.
--- NOTE | 2017-04-07 07:50 | NUR ---
TO SEE PATIENT AND ASSESS, UPDATES GIVEN, WILL CONTINUE TO MONITOR.
--- NOTE | 2017-04-07 08:00 | NUR ---
RECEIVED PATIENT FROM CASSI RN, PATIENT WITH EYES OPEN FOLLOWS WITH EYES, NON VERBAL DUE TO PAITENT ON VENTILAOR AC MODE FIO2 30, RATE 14, TV 400, AND PEEP 5, ETT TUBE TO VENT SIZE 7.5, LL 23 AND INTACT, ORAL CARE PROVIDED. ABLE TO FOLLOW SIMPLE COMMANDS AND SQUEEZES HANDS BILATERALLY. MODERATE PULSES TO BUE/BLE, WITH +2 PITTING EDEMA TO BLE AND BLE ELEVATED ON PILLOWS. LUNG SOUNDS COARSE WITH EXPIRATORY WHEEZING, O2 SAT 96%, RESPIRATIONS 14. ACTIVE BOWEL SOUNDS ABD SOFT/ROUND, TUBE FEEDING HELD AT THIS TIME FOR HIGH RESIDUAL. F/C TO GRAVITY DRAINING YELLOW/BLOOD STREAK URINE. BED TO LOWEST POSITION, SIDE RAILS UP X2, WILL CONTINUE TO MONITOR.
--- NOTE | 2017-04-07 08:52 | NUR ---
RT CHANGED VENT SETTINGS TO CPAP MODE FIO2 30%, PS 12, PEEP 5, WILL REASSESS AND CONTINUE TO MONITOR.
--- NOTE | 2017-04-07 08:52 | NUR ---
Pt PLACED ON CPAP TRIAL AT THIS TIME. PSV 12, PEEP +5, FIO2 30%. ABG TO FOLLOW 1 HOUR AFTER. WEANING PARAMETERS TO FOLLOW. RN NOTIFIED. WILL MONITOR.
--- NOTE | 2017-04-07 09:00 | NUR ---
STARTED TUBE FEEDINGS INFUSING AT 30ML/HR, RESIDUAL 30ML AND REPLACED, WILL CONTINUE TO MONITOR.
--- NOTE | 2017-04-07 09:08 | NUR ---
PATIENT ROUNDS WITH DR. CASTRO AND RESIDENTS. PRIMARY NURSE AND CHARGE NURSE AT BEDSIDE. UPDATES PROVIDED. POC DISCUSSED. WILL CONTINUE TO MONITOR.
--- NOTE | 2017-04-07 12:00 | NUR ---
PATIENT WITH EYES OPEN FOLLOWS WITH EYES, NON VERBAL DUE TO PAITENT ON VENTILAOR CPAP MODE FIO2 30, PEEP 5, PS 12 5, ETT TUBE TO VENT SIZE 7.5, LL 23 AND INTACT, ORAL CARE PROVIDED. ABLE TO FOLLOW SIMPLE COMMANDS AND SQUEEZES HANDS BILATERALLY. MODERATE PULSES TO BUE/BLE, WITH +2 PITTING EDEMA TO BLE AND BLE ELEVATED ON PILLOWS. LUNG SOUNDS COARSE WITH EXPIRATORY WHEEZING, O2 SAT 97%, RESPIRATIONS 17. ACTIVE BOWEL SOUNDS ABD SOFT/ROUND, TUBE FEEDING TOLERATING WELL WITH 30ML RESIDUAL AND REPLACED. F/C TO GRAVITY DRAINING YELLOW COLORED URINE. BED TO LOWEST POSITION, SIDE RAILS UP X2, WILL CONTINUE TO MONITOR.
--- NOTE | 2017-04-07 13:05 | NUR ---
WEANING PARAMETERS PERFORMED AT THIS TIME ON PSV 12, PEEP +5, FIO2 30%. VC: 427 NIF: - 48 RSBI: 60 RR: 27 VT: [address] SINGH NOTIFIED. Pt LEFT ON CPAP SETTINGS 09/[address] SINGH. WILL CONTINUE TO MONITOR Pt.
--- NOTE | 2017-04-07 13:24 | NUR ---
RT HERE FOR WEANING TRIALS, VITAL CAPACITY 427, RT KAYLYNN SIMMS. WILL REASSESS.
--- NOTE | 2017-04-07 13:40 | NUR ---
RT DECREASED PRESSURE SUPPORT TO 10, CPAP MODE CONTINUED, FIO2 30%, PEEP 5, VITAL CAPACITY 348. WILL REASSESS.
--- NOTE | 2017-04-07 16:10 | NUR ---
PATIENT WITH EYES OPEN FOLLOWS WITH EYES, NON VERBAL DUE TO PAITENT ON VENTILAOR CPAP MODE FIO2 30, PEEP 5, PS 12 5, ETT TUBE TO VENT SIZE 7.5, LL 23 AND INTACT, ORAL CARE PROVIDED. ABLE TO FOLLOW SIMPLE COMMANDS AND SQUEEZES HANDS BILATERALLY. MODERATE PULSES TO BUE/BLE, WITH +2 PITTING EDEMA TO BLE AND BLE ELEVATED ON PILLOWS. LUNG SOUNDS COARSE WITH EXPIRATORY WHEEZING, O2 SAT 95%, RESPIRATIONS 17. ACTIVE BOWEL SOUNDS ABD SOFT/ROUND, TUBE FEEDING TOLERATING WELL WITH 50 ML TORRES RESIDUAL AND REPLACED, HAD ON SOFT BROWN BM AT THIS MOMENT AND NOW CLEAN AND DRY. F/C TO GRAVITY DRAINING YELLOW COLORED URINE. BED TO LOWEST POSITION, SIDE RAILS UP X2, WILL CONTINUE TO MONITOR.
--- NOTE | 2017-04-07 16:10 | NUR ---
PATIENT WITH EYES OPEN FOLLOWS WITH EYES, NON VERBAL DUE TO PAITENT ON VENTILAOR CPAP MODE FIO2 30, PEEP 5, PS 12 , ETT TUBE TO VENT SIZE 7.5, LL 23 AND INTACT, ORAL CARE PROVIDED. ABLE TO FOLLOW SIMPLE COMMANDS AND SQUEEZES HANDS BILATERALLY. MODERATE PULSES TO BUE/BLE, WITH +2 PITTING EDEMA TO BLE AND BLE ELEVATED ON PILLOWS. LUNG SOUNDS COARSE WITH EXPIRATORY WHEEZING, O2 SAT 95%, RESPIRATIONS 17. ACTIVE BOWEL SOUNDS ABD SOFT/ROUND, TUBE FEEDING TOLERATING WELL WITH 50 ML TORRES RESIDUAL AND REPLACED, HAD ON SOFT BROWN BM AT THIS MOMENT AND NOW CLEAN AND DRY. F/C TO GRAVITY DRAINING YELLOW COLORED URINE. BED TO LOWEST POSITION, SIDE RAILS UP X2, WILL CONTINUE TO MONITOR.
--- NOTE | 2017-04-07 18:10 | NUR ---
PATIENT PLACED ON AC MODE BY RT TV 400, PEEP 5, FIO2 30, AND RATE 14, WILL CONTINUE TO MONITOR.
--- NOTE | 2017-04-07 18:12 | NUR ---
MED IVP FOR PAIN, PT GRIMACING AND EMOTIONAL, RELIEF IN 15 MIN. WILL REASSESS.
--- NOTE | 2017-04-07 18:50 | NUR ---
PATIENT WITH EYES OPEN FOLLOWS WITH EYES, NON VERBAL DUE TO PAITENT ON VENTILAOR AC MODE FIO2 30, TV 400 RATE 14, ETT TUBE TO VENT SIZE 7.5, LL 23 AND INTACT, O2 SAT 97%, RESPIRATIONS 11. ON TUBE FEEDINGS TOLERATING WELL. F/C TO GRAVITY DRAINING YELLOW COLORED URINE. RIJ CDI AND INFUSING NS AT 20ML/HR. BED TO LOWEST POSITION, SIDE RAILS UP X2, AND WILL ENDORSE TO NIGHT NURSE.
--- NOTE | 2017-04-07 18:57 | NUR ---
NURSING CO-SIGN THE DOCUMENTATION ENTERED BY THE IP HAS BEEN REVIEWED. REVIEWED/CO-SIGNED BY: Carri Johnson DOCUMENTATION DONE BY: PRIYANKA WORRELL RN
--- NOTE | 2017-04-07 19:15 | NUR ---
RECEIVED REPORT FROP SIRISHA MATHEW, ALL QUESTIONS ADDRESSED, WILL TAKE OVER CARE.
--- NOTE | 2017-04-07 19:45 | NUR ---
PT ON VENT, EYES OPEN SPONTANEOUSLY, PUPILS SLUGGISH, GENERALIZED WEAKNESS, FULL PASSIVE ROM, LIMITED ACTIVE ROM, AC MODE SIZE 7.5, 22LL, FIO2 30, VT 400, PEEP 5, RR14, RHONCHI THROUGHOUT, RESPIRATIONS EQUAL AND UNLABORED, NO DISTRESS. HR 87, BP 77/49, MAP 60, CVP 9, CHEST WALL STABLE, S1S2 AUSCULTATED, NO CP, DIZZINESS, OR SYNCOPE. SKIN APPROPRIATE FOR ETHNICITY, WARM AND DRY, CAP REFILL <3, EDEMA +2 BLE, PULSES PALPABLE, NO CONTRACTURES, DOWN SYNDROME. ABD SOFT, ROUND, NONTENDER, BOWEL SOUNDS ACTIVE X4, NO BM. F/C IN PLACE DRAINING TO GRAVITY, URINE YELLOW, NO PENIAL DRAINAGE OR EDEMA. CALM AND COOPERATIVE, WILL CONTINUE TO MONITOR.
[2017-04-08] VITALS (17 sets, daily range): BP systolic 80–107; BP diastolic 46–70
--- NOTE | 2017-04-08 00:12 | NUR ---
DR LANDEROS AT BEDSIDE NO NEW ORDERS WILL CONTINUE TO MONITOR.
--- NOTE | 2017-04-08 04:47 | NUR ---
DR LACKEY AT BEDSIDE NO NEW ORDERS, WILL CONTINUE TO MONITOR.
--- NOTE | 2017-04-08 05:28 | NUR ---
BED BATH GIVEN, CHG WIPES USED, WILL CONTINUE TO MONITOR
[2017-04-08 05:31] LABS: BASOPHIL % 0.9 % (0-2); PLATELET COUNT 316 x10^3mcL (130-400)
[2017-04-08 05:35] LABS: RED CELL DISTRIBUTION WIDTH 14.9 % (11.5-14.5)
[2017-04-08 05:40] LABS: CALCIUM 8.3 mg/dL (8.5-10.1); CARBON DIOXIDE 33.4 mmol/L (21-32); CHLORIDE SERUM 101 mmol/L (98-107); CREATININE SERUM 1.1 mg/dL (0.7-1.3); GFR1 > 60 mL/min; GLUCOSE SERUM 95 mg/dL (74-106); PHOSPHOROUS 4.2 mg/dL (2.5-4.9); POTASSIUM SERUM 3.9 mmol/L (3.5-5.1); SODIUM SERUM 137 mmol/L (136-145)
--- NOTE | 2017-04-08 07:15 | NUR ---
REPORT RECEIVED FROM WILLIAMS GRIMM.
--- NOTE | 2017-04-08 07:17 | NUR ---
REPORT GIVEN TO SIRISHA PUENTE, ALL QUESTIONS ADDRESSED, WILL ENDORSE CARE.
--- NOTE | 2017-04-08 08:00 | NUR ---
PT IS INTUBATED, NOT ON SEDATION. PT IS ALERT AND ORIENTED TO PERSON. FOLLOWS SOME SIMPLE COMMANDS. PERRLA, 3 MM SLUGGISH. SIZE 7.5 ETT INTACT AND SECURED, 23 @ LL. ETT TO VENT, AC/VCV: RATE 14, TV 400, PEEP 5, FIO2 30%. BREATHING IS EVEN AND UNLABORED. LUNG SOUNDS ARE INSP WHEEZES BILATERALLY, DIMINISHED TO BASES. NSR. S1 S2 HEART SOUNDS AUSCULTATED. PULSES ARE MODERATE X4. CAP REFILL < 3 S. SKIN IS WARM AND PALE. +2 EDEMA TO LLE, +1 TO LUE, TRACE TO RLE. R IJ INTACT, PORTS PATENT, DRESSING CDI. NS INFUSING @ 20 CC/HR. OGT INTACT AND SECURED. INFUSING NUTREN PULM @ 30 CC/HR, 50 CC FWF Q4H, TOLERATING WELL, GRV = 0. ABD IS SOFT AND ROUNDED. BOWEL SOUNDS ACTIVE X4Q. LAMAR INTACT AND DRAINING VIA GRAVITY. URINE IS CLEAR, YELLOW, ADEQUATE OUPUT. NO C/O OR S/SX OF PAIN AT THIS TIME. ORAL CARE DONE. HOB ELEVATED, BED LOW, SIDE RAILS UP X3, CALL LIGHT IN REACH. WILL CONTINUE TO MONITOR.
--- NOTE | 2017-04-08 08:40 | NUR ---
PT PUT ON CPAP BY JONI RT: PEEP 5, PSV 12, FIO2 30%.
--- NOTE | 2017-04-08 09:08 | NUR ---
TUBE FEEDING SUSPENDED AT THIS TIME FOR CPAP TRIAL.
--- NOTE | 2017-04-08 12:41 | NUR ---
Initial Nutrition Assessment Dx: Sepsis, Pneumonia PMHx: Down's syndrome, gout, GERD, macrocytic anemia, hypothyroidism, chronic constipation, bipolar disorder, dementia, glaucoma PSHx: None Labs: BG 95, H/H 9.5/29 L, no lactic acid lab value Meds: Ativan, Colace, D10, humulin R, lactinex, levophed, miralax, neutra-phos, protonix, pulmicort, NS IV, synthroid, theragran, vancomycin, vitamin C 500 mg daily, Zofran, heparin Current Nutrition Support: TF Nutren Pulmonary at 10 ml/hr, increase Q4h to goal 30 ml/hr, Free Water Flush: 50 ml Q4h via NGT (x8 days) - HELD at this time due to Cpap trials TF Intakes: (04/06) 720 ml; (04/07) 690 ml; (04/08) 300 ml Residuals: (04/08) 0 ml NGT Output: (04/04) 200 ml; (04/08) 100 ml I/O: 1663/4251 (-2588 ml) Ht: 64", 5' 4". Wt: 158 lb, 71 kg. BMI: 27.2 kg/m2 (Overweight) IBW: 130 lb, 59 kg. %IBW: 120%. UBW: Unknown. Wt Hx: (12/27/16) 143 lb, 65 kg. Age: 56 Y/O M Food Allergies: Unknown Skin: Intact. Carlos 15. No pressure injuries noted. Edema: 2+ LLE, 1+ LUE, trace to RLE GI: Abd soft, round. Active bowel sounds. Last BM 04/07. Verified with RN, no BM today yet. Stool Output: (04/06) 2; (04/07) 2 Pt found with septic shock, secondary to aspiration pneumonia per doctor's notes. Per doctor's progress note 04/08, continues treatment vancomycin PO and IV pharmacy dosing, Dr. Cartwright following, remains intubated, no sedation, no pressors; Pt with septic shock secondary to aspiration pneumonia s/p intubation. Pt seen +intubated, +ETT to vent support, +OGT in place, TF Nutren Pulmonary bag seen hung but not infusing. RN reported pt currently on Cpap trials, no sedation, no pressors, trying to extubate, however, pt not too alert, not following commands at this time. Per RN, TF previously at goal 30 ml/hr, no residuals, tolerating well. Current TF regimen at goal 30 ml/hr provides 1080 kcal, 49 gm protein, 863 ml free water daily. Meets 74% of estimated caloric needs and 58% of estimated protein needs. Inadequate. Diet at Home: (12/27/16 - Per prior RD note) Mechanical Soft, Finely Chopped; PO intakes fair to good 0-100% Estimated Nutritional Needs Based CBW 158 lb, 71 kg. Ventilator in L/min: 4. Temperature: 98.3 F/36.8 C Energy: 1454 kcal/day (PSU 2003 for Ventilator Support) Protein: 85-107 gm/day (1.2-1.5 gm/kg for Pneumonia) Fluids: 2130 ml/day (30 ml/kg for Maintenance) or per doctor Nutrition Diagnosis Inadequate enteral nutrition support infusion related to low TF rate as evidenced by pt only meeting 74% of estimated caloric needs and 58% of estimated protein needs Intervention 1. Note that pt on OGT feedings x8 days. 2. Continue Nutren Pulmonary at 10 ml/hr, increase Q4h to goal 30 ml/hr, Free Water Flush: 50 ml Q4h via OGT per doctor. 3. If unable to extubate, consider increasing TF rate: TF Nutren Pulmonary at goal 40 ml/hr, Free Water Flush: 200 ml Q4h via OGT if/when medically appropriate. 4. If able to extubate, consider Swallow Evaluation per Speech Therapist to determine appropriate diet texture. Monitor/Evaluate Goal: TF intakes to meet >80% of estimated needs with tolerance; Residuals <200 ml Monitor: TF intakes/tolerance, labs, skin integrity, GI function, weights F/U in 2-3 days as HIGH risk (04/10-04/11)
--- NOTE | 2017-04-08 16:10 | NUR ---
DR SINGH AT BEDSIDE TO ASSESS PT. UPDATED ON PT STATUS, QUESTIONS ANSWERED.
--- NOTE | 2017-04-08 16:13 | NUR ---
TUBE FEEDING RESUMED AT THIS TIME, NUTREN PULMONARY @ 30 CC/HR, 50 CC FWF Q4H.
--- NOTE | 2017-04-08 17:29 | NUR ---
PT HAD LARGE SEMI-FORMED BM. PT BATHED, CHG WIPED, LAMAR CARE, LINENS AND GOWN CHANGED.
--- NOTE | 2017-04-08 18:24 | NUR ---
PT PUT BACK ON AC/VCV BY JONI RT: RATE 14, TV 400, PEEP 5, FIO2 30%.
--- NOTE | 2017-04-08 19:12 | NUR ---
REPORT GIVEN TO HAYLEY GRIMM.
--- NOTE | 2017-04-08 19:14 | NUR ---
REPORT RECEIVED FROM KWAME GRIMM. ALL QUESTIONS AND CONCERNS ANSWERED. WILL ASSUME ALL PT CARE.
--- NOTE | 2017-04-08 19:45 | NUR ---
PT IS INTUBATED, NO SEDATION. PT IS ABLE TO FOLLOW SIMPLE COMMANDS, UNABLE TO MAKE NEEDS KNOWN. RIJ IN PLACE, DRESSING CDI, ALL PORTS PATENT AND INFUSING WELL. NS AT 20 ML/HR. 7.5 ETT/22 LL, ATTACHED TO VENT. VENT SETTINGS: AC MODE, FIO2 30%, VT 400, RATE 14, PEEP 5. LUNGS SOUNDS RHONCHI TO BILAT UPPER LOBES AND DIMINISHED BREATHH SOUNDS TO BILAT BASES OF LOBES HEARD UPON AUSCULTATION. CHEST RISE IS EQUAL AND SYMMETRICAL. ABD IS ROUND AND FIRM. HYPOACTIVE BOWEL SOUNDS X4 QUADRANTS. OGT IN PLACE. NUTREM PULM AT 30 ML/HR WITH FWF OF 50 ML Q4H. NO GASTRIC RESIDUAL NOTED. LAMAR CATHETER IN PLACE, CLEAN AND PATENT, DRAINING YELLOW URINE. SKIN IS WARM AND DRY. LLE +2 PITTING EDEMA, RLE TRACE EDEMA, LUE +1 PITTING EDEMA, NO EDEMA TO RUE NOTED. CAP REFILL <3. PT REPOSITIONED PER PROTOCOL. HOB 30 DEGREES. BP 97/66, MAP 77, HR 88, RR 14, TEMP 99.1, O2 96%, NO S/S OF PAIN OR DISTRESS NOTED AT THIS TIME. WILL CONTINUE TO MONITOR FOR ANY ACUTE CHANGES.
--- NOTE | 2017-04-08 23:37 | NUR ---
RT AT BEDSIDE FOR BREATHING TX.
[2017-04-09] VITALS (25 sets, daily range): BP systolic 78–141; BP diastolic 48–83
--- NOTE | 2017-04-09 00:10 | NUR ---
DR SARAVIA AT BEDSIDE. UPDATES GIVEN. NO NEW ORDERS.
--- NOTE | 2017-04-09 02:20 | NUR ---
PT REPOSITIONED PER PROTOCOL. PT TOLERATED WELL. VS STABLE. WILL CONTINUE TO MONITOR FOR ANY ACUTE CHANGES.
--- NOTE | 2017-04-09 03:50 | NUR ---
RT AT BEDSIDE TO ADMINISTER BREATHING TX
[2017-04-09 05:09] LABS: PLATELET COUNT 351 x10^3mcL (130-400); RED CELL DISTRIBUTION WIDTH 14.2 % (11.5-14.5)
[2017-04-09 05:28] LABS: CALCIUM 8.4 mg/dL (8.5-10.1); CARBON DIOXIDE 30.9 mmol/L (21-32); CHLORIDE SERUM 102 mmol/L (98-107); CREATININE SERUM 1.2 mg/dL (0.7-1.3); GFR1 > 60 mL/min; GLUCOSE SERUM 95 mg/dL (74-106); MAGNESIUM 2.1 mg/dL (1.8-2.4); PHOSPHOROUS 4.2 mg/dL (2.5-4.9); SODIUM SERUM 136 mmol/L (136-145)
[2017-04-09 05:49] LABS: BAND NEUTROPHIL 2 % (0-10); METAMYELOCTE 2 % (0-2); MONOCYTE 5 % (0-7); MYELOCYTE 1 % (0-2); SEGMENTED NEUTROPHILS 67 % (37-75); rbc morphology (normal/abnorm) ABNORMAL (NORMAL)
[2017-04-09 05:51] LABS: PLATELET MORPHOLOGY LARGE PLATELET SEEN
--- NOTE | 2017-04-09 06:26 | NUR ---
DR WHITLEY AT BEDSIDE. UPDATES PROVIDED. NO NEW ORDERS AT THIS TIME.
--- NOTE | 2017-04-09 06:28 | NUR ---
OBTAINED NARE SPECIMEN FOR MRSA CLEARANCE PER PROTOCOL. SENT TO LAB.
--- NOTE | 2017-04-09 07:29 | NUR ---
REPORT GIVEN TO KEVAN GRIMM. ALL QUESTIONS AND CONCERNS ASNWERED. ENDORESED ALL CARE.
--- NOTE | 2017-04-09 07:30 | NUR ---
PT AWAKE, EYES OPEN. NON VERBAL AT THIS TIME. TEMP 98.9 AXILLARY. MONITOR 9 SHOWS SINUS RHYTHM RATE 99. KY=265/69. MAP=79. ET IN PLACE AT 23 LIP LINE TO VENT SETTINGS ASSIST CONTROL [id number], RATE 14, RIO2=30%, PEEP=5. PSV=12. PLAN FOR CPAP TODAY. BREATH SOUNDS DIMINISHED. NO CRACKLES OR WHEEZING NOTED. HOB ELEVATED 30 DEGREES FOR ASPIRATION PRECAUTIONS. ABD SOFT, BOWEL TONES PRESENT. OGT ASCULTATES IN STOMACH WITH NO RESIDUAL. ENTERAL FEEDING IN PROGRESS WITH NUTREN PULMONARY 30CC/HR. FWF 50CC EVERY 4 HOURS. WILL CONTINUE TO MONITOR. LAMAR CATH DRAINS YELLOW URINE. TRACE EDEMA BLE. ELEVATED ON PILLOWS TO FLOAT HEELS. IV RIJ IN PLACE WITH NORMAL SALINE 20CC/HR. CONTACT ISOLATION MAINTAINED. PT IS MODIFIED CODE STATUS. SIDE RAILS UP X2. CALL LIGHT IN REACH. WILL CONTINUE TO MONITOR.
--- NOTE | 2017-04-09 08:55 | NUR ---
DR RODRIGUEZ AND MEDICAL TEAM IN ON ROUNDS. DR WHITLEY PRESENT. REVIEWED TX PLAN.
--- NOTE | 2017-04-09 10:15 | NUR ---
PT INCONTINENT LOOSE BROWN STOOL. PERICARE PROVIDED. ZGUARD TO PERINEAL REGION. SKIN INTACT. LAMAR CATH CARE COMPLETED. CHLORHEXIDINE WIPES USED FOR SKIN CARE. TURN TO LEFT SIDE WITH PILLOW SUPPORT. BLE ELEVATED ON PILLOWS TO FLOAT HEELS. HOB ELEVATED 30 DEGREES. WILL CONTINUE TO MONITOR.
--- NOTE | 2017-04-09 11:30 | NUR ---
DR SINGH HERE. UPDATED WITH PT STATUS BY ADELINA GRIMM. PT CONTINUES ON CPAP MODE. PAGE TO ZENOBIA REES TO UPDATE DR SINGH ON CPAP STATUS.
--- NOTE | 2017-04-09 11:45 | NUR ---
CPAP IN PROGRESS. FI02 DECREASED TO 25%, PSV=10. WILL CONTINUE TO MONITOR. ENCOURAGED DEEP BREATHING.
--- NOTE | 2017-04-09 12:00 | NUR ---
EYES OPEN. NON VERBAL AT THIS TIME. TEMP 96.7. ET IN PLACE AT [address] LIP LINE. VENT IN PL[address] CPAP MODE WITH SETTINGS [id number], RATE 14, PEEP 5, PSV=10. FI01=25%. HOB ELEVATED. DEEP BREATHING ENCOURAGED. DUE TO PTS HX DOWNS SYNDROME PT IS UNABLE TO FOLLOW COMMANDS REQUESTED. PULSE OX 98%. CVP=11. RBS=88MG. RESP 21 SHALLOW. BREATH SOUNDS DIMINISHED. SUCTION PRN. ABD SOFT, BOWEL TONES PRESENT. LBM THIS AM. CLEAN AT THIS TIME. OGT ASCULTATES IN STOMACH. NO RESIDUAL. ENTERAL FEEDING CONTINUES NUTREN PULMONARY 30CC/HR WITH FREE WATER FLUSH 50CC Q4HRS. HOB ELEVATED FOR ASPIRATION PRECAUTIONS. ORAL CARE PROVIDED. REPOSITIONED TO RIGHT SIDE WITH PILLOW SUPPORT. HEELS FLOATED. LAMAR CATH DRAINS YELLOW URINE. IV PATENT RIJ INFUSING NORMAL SALINE 20CC/HR. IV VANCO 750MG STARTED AT THIS TIME. SIDE RAILS UP X3. CALL LIGHT IN REACH. CONTACT ISOLATION MAINTAINED. MODIFIED CODE STATUS.
--- NOTE | 2017-04-09 14:00 | NUR ---
PT CONTINUES ON CPAP WITH SETTINGS: FI02=25%, PR=883. RATE 14, PEEP 5, PSV=10. SMALL FORMED BROWN STOOL. PERICARE PROVIDED. ZGUARD TO PERINEAL REGION. TURN AND REPOSITION TO LEFT SIDE WITH PILLOW SUPPORT. SKIN INTACT. PILLOW UNDER EACH LEG TO FLOAT HEELS. HOB ELEVATED 30 DEGREES. ENTERAL FEEDING IN PROGRESS. SIDE RAILS UP X3. CALL LIGHT IN REACH. WILL CONTINUE TO MONITOR.
--- NOTE | 2017-04-09 14:30 | NUR ---
RT AT BEDSIDE FOR ABG DRAW.
--- NOTE | 2017-04-09 16:00 | NUR ---
NEURO STATUS UNCHANGED. EYES OPEN, TRACKS WITH EYES. NODS HEAD TO SOME YES AND NO QUESTIONS. DENIES PAIN WHEN ASKED. TEMP 98.9 AXILLARY. ET TO VENT AT 23 LL. VENT SETTINGS CPAP SINCE 844 [id number], FIO2=25%, RATE 14. PEEP=5, PSV=10. PULSE OX 92%. ENCOURAGED DEEP BREATHING BUT DUE TO COGNITIVE ISSUES DOES NOT FOLLOW COMMANDS. OGT ASCULTATES IN STOMACH. NO RESIDUAL. ENTERAL FEEDING WITH NUTREN PULMONARY IN PROGRESS AT 30CC/HR. FREE WATER FLUSH 50CC Q4HRS. HOB ELEVATED. NEW BAG AND TUBING SET UP. ABD SOFT, BOWEL TONES PRESENT. SECOND EPISODE TODAY OF LOOSE BROWN STOOL INCONTINENCE. PERICARE PROVIDED. ZGUARD FOR SKIN CARE, TURN PER PROTOCOL. HOB ELEVATED 45 DEGREES FOR ASPIRATION PRECAUTIONS. EDEMA TRACE BLE. ELEVATED ON PILLOW TO FLOAT HEELS. RIJ IN PLACE WITH IVF NORMAL SALINE 20CC/HR. CVP=11. CALL TO PHARMACY. LAST VANCO TROUGH DONE 04-06-17 1130. PER [facility]INCESS PHARMACIST VANCO TROUGH ORDERED FOR TODAY AT 2300. TO HOLD DOSE IF RESULTS OVER 20. CONTACT/DROPLET ISOLATION MAINTAINED. SIDE RAILS UP X3. CALL LIGHT IN REACH. WILL CONTINUE TO MONITOR.
--- NOTE | 2017-04-09 16:30 | NUR ---
PATIENT TO BE TRANSFERRED TO SUB-ACUTE FACILITY FOR CONTINUED IV ABX AND VENT SUPPORT. THE FOLLOWING FACILITIES WERE CONTACTED TODAY FOR BED AVAILABILITY: JULIETTE LEDESMA- SPOKE WITH SC[facility], NO BEDS [facility]- [place] [facility] [place] FOR [place]ED [place] [facility]- SPOKE WITH XIN- FAXED INFORMATION REQUESTED [facility]- BEDS AVAILABLE- FAXED INFORMATION TO [facility]- SPOKE WITH MED- NO BEDS- FAXED INFORMATION [facility] FROM [facility] TELEPHONED UN[facility] AND REQUESTED THAT PATIENT MED. REC BE FAXED. THEY ARE WILLING TO ACCEPT PATIENT AND WILL PROVIDE BED INFORMATION IN THE AM. SPOKE WITH PATIENT'S MOTHER VALERIE AND PROVIDED ACCEPTING FACILITY NAME, ADDRESS AND TELEPHONE NUMBER. ALL QUESTIONS AND CONCERNS ADDRESSED. INFORMED VALERIE THAT PATIENT WILL NOT BE MOVED TO ACCEPTING FACILITY UNTIL TOMORROW 04/10/17. MOTHER IN AGREEMENT WITH PLAN. CONTACTED LENORA IN CASE MANAGEMENT AND INFORMED HER OF PLAN. SHE WILL ARRANGE FOR CCRT TOMORROW AND OBTAIN AUTHORIZATION FROM INSURANCE COMPANY FOR PATIENT TRANSFER.
--- NOTE | 2017-04-09 17:34 | NUR ---
PT AWAKE WATCHING TV. [facility] CONTACT. NO CHANGE IN RESP STATUS CONTINUES WITH CPAP TOLERATED. IV CONTINUES PATENT 20CC/HR. ENTERAL FEEDING 30CC/HR. RESIDUAL AT THIS TIME 50CC REPLACED, MEDS GIVEN. SIDE RAILS UP X3. CALL LIGHT IN REACH. WILL CONTINUE TO MONITOR.
--- NOTE | 2017-04-09 17:45 | NUR ---
PT IS INTUBATED WITH NO SEDATION. PT ABLE TO FOLLOW SIMPLE COMMANDS, UNABLE TO MAKE NEEDS KNOWN. RIJ IN PLACE, DRESSING CDI, ALL PORTS PATENT AND INFUSING WELL. NS RUNNING AT 20 ML/HR. OGT IN PLACE AND SECURED. ETT IN PLACE AND SECURED, ATTACHED TO VENT, 7.5 ETT/22 LL. VENT SETTINGS: AC MODE, FIO2 25%, RATE 14, VT 400, PEEP 5. INSPIRATORY WHEEZES HEARD TO BILAT UPPER LOBES, DIMINISHED BREATH SOUNDS TO BASES OF LOBES HEARD UPON AUSCULTATION. CHEST RISE IS EQUAL AND SYMMETRICAL. ABD IS ROUND AND FIRM, HYPOACTIVE BOWEL SOUNDS X4 QUADRANTS. NUTREM PULM AT 30 ML/HR WITH FWF OF 50 ML Q4H. GASTRIC RESIDUAL <5 ML. LAMAR CATHETER IN PLACE, CLEAN AND PATENT, DRAINING YELLOW URINE WITH SEDIMENTS NOTED. SKIN IS WARM, DRY, AND INTACT. LLE +2 PITTING EDEMA, RLE TRACE EDEMA, LUE TRACE EDEMA, RUE NO EDEMA NOTED. CAP REFILL <3. MODERATE PULSES TO BUE AND WEAK PULSES TO BLE NOTED. ORAL CARE PROVIDED. HOB 30 DEGREES. BP 94/55, MAP 67, HR 72, RR 14, TEMP 99.2, O2 95%, CVP 14, NO S/S OF PAIN OR DISTRESS NOTED. WILL CONTINUE TO MONITOR FOR ANY ACUTE CHANGES.
--- NOTE | 2017-04-09 18:02 | NUR ---
DR LACKEY AT BEDSIDE. UPDATES PROVIDED. NO NEW ORDERS.
--- NOTE | 2017-04-09 19:25 | NUR ---
RECEIVED REPORT FROM ADELINA GRIMM. ALL QUESTIONS AND CONCERNS ANSWERED. WILL ASSUME ALL CARE.
--- NOTE | 2017-04-09 20:02 | NUR ---
DR LACKEY AT BEDSIDE. UPDATES PROVIDED. NO NEW ORDERS.
--- NOTE | 2017-04-09 23:02 | NUR ---
PT BUCKING VENT, FACIAL GRIMACING. DR CARVALHO PAGED. NEW ORDERS RECEIVED.
--- NOTE | 2017-04-09 23:22 | NUR ---
PT DISPLAYING FACIAL GRIMACING AND BITING DOWN ON ETT. MORPHINE 2 MG IVP PRN FOR PAIN ADMINISTERED. WILL CONTINUE TO MONITOR.
[2017-04-10] VITALS (16 sets, daily range): BP systolic 90–144; BP diastolic 51–88
--- NOTE | 2017-04-10 00:40 | NUR ---
PT RESTING COMFORTABLY AT THIS TIME. PAIN MEDICATION EFFECTIVE. WILL CONTINUE TO MONITOR.
--- NOTE | 2017-04-10 01:01 | NUR ---
VANCO TROUGH 32.5, DR LACKEY MADE AWARE.
[2017-04-10 05:47] LABS: BASOPHIL % 0.6 % (0-2); PLATELET COUNT 361 x10^3mcL (130-400); RED CELL DISTRIBUTION WIDTH 14.5 % (11.5-14.5)
[2017-04-10 05:52] LABS: CALCIUM 8.6 mg/dL (8.5-10.1); CARBON DIOXIDE 32.5 mmol/L (21-32); CHLORIDE SERUM 101 mmol/L (98-107); CREATININE SERUM 1.3 mg/dL (0.7-1.3); GFR1 > 60 mL/min; GLUCOSE SERUM 99 mg/dL (74-106); MAGNESIUM 2.2 mg/dL (1.8-2.4); PHOSPHOROUS 4.4 mg/dL (2.5-4.9); POTASSIUM SERUM 3.8 mmol/L (3.5-5.1); SODIUM SERUM 135 mmol/L (136-145)
--- NOTE | 2017-04-10 05:55 | NUR ---
DR WHITLEY AT BEDSIDE. UPDATES PROVIDED. NO NEW ORDERS AT THIS TIME.
--- NOTE | 2017-04-10 06:22 | NUR ---
DR KNUTSON AT BEDSIDE. UPDATES PROVIDED. NO NEW ORDERS AT THIS TIME.
--- NOTE | 2017-04-10 07:35 | NUR ---
RECEIVED PT RESTING, OPENS EYES SPONTANEOUSLY AND VERBAL/TACTILE STIMULI, ABLE TO FOLLOW SIMPLE COMMANDS SUCH "SQUEEZE MY HAND". PT NONVERBAL DUE INTUBATION, UNABLE TO MAKE NEEDS KNOWN. PT HAS HX OF DOWN SYNDRONE, CHRONIC CONSTIPATION. PUPILS 3MM BILAT, BRISK REACTION TO LIGHT. NO DRAINAGE FROM EYES/EARS/NARES. ETT TO VENT SECURED AND IN PLACE, 7.5 LL22. CHEST RISE EQUAL AND SYMMETRICAL VIA VENT. VENT SETTINGS: AC MODE, RATE 14, VT 400, FIO2 25% PEEP 5. LUNG SOUNDS CLEAR BUL, CLEAR AND DIMINISHED BLL. RIJ TLC CDI, PATENT AND FLUSHING WELL. AUSCULTATED S1, S2 SOUNDS. NS INFUSING @ 20ML/HR, PERIPHERAL PULSES BUE MODERATE, BLE WEAK. CAP REFILL BUE/BLE <3 SECONDS. BUE TRACE EDEMA, BLE +1 EDEMA NOTED. ACTIVE BOWEL SOUNDS X 4. OGT IN PLACE AND SECURED RECEIVING NUTREN PULMONARY 30ML/HR FWF 50ML Q4H. PT TOLERATING FEEDING, GASTRIC RESIDUAL <5ML REPLACED. LAMAR CATHETER DRAINING TO GRAVITY, DRAINING PALE YELLOW URINE. NO PENILE DISCHARGE, SCROTAL EDEMA NOTED. ORAL CARE PROVIDED PER VAP PROTOCOL. SKIN INTACT, DRY, WTT. VITAL SIGNS AT THIS TIME: HR 88 O2 94% BP 97/65 MAP 82, CVP 8, RR 14, TEMP 97.7 BED IN LOWEST POSITION, HOB ELEVATED 30 DEGREES, CALL LIGHT WITHIN REACH. NO S/S OF PAIN OR DISTRESS NOTED AT THIS TIME. WILL CONTINUE TO MONITOR.
--- NOTE | 2017-04-10 08:30 | NUR ---
RT AT BEDSIDE FOR ASSESSMENT PER PROTOCOL AND BREATHING TREATMENT.
--- NOTE | 2017-04-10 08:40 | NUR ---
PATIENT ROUNDS WITH DR. HERNANDEZ AND RESIDENTS. CHARGE NURSE AND PRIMARY NURSE AT BEDSIDE. UPDATES PROVIDED. POC DISCUSSED. WILL CONTINUE TO MONITOR.
--- NOTE | 2017-04-10 08:40 | NUR ---
RT AT BEDSIDE, PT PUT ON CPAP, PRESSURE 10, PEEP 5. PT TOLERATING, O2 SAT 94%, RR 14-16. WILL CONTINUE TO MONITOR.
--- NOTE | 2017-04-10 11:10 | NUR ---
LAB AT BEDSIDE FOR BLOOD COLLECTION SAMPLE FOR VANCO TROUGH. WILL CONTINUE TO MONITOR.
--- NOTE | 2017-04-10 12:00 | NUR ---
RT AT BEDSIDE FOR ASSESSMENT PER PROTOCOL AND BREATHING TREATMENT/EXERCISE.
--- NOTE | 2017-04-10 16:00 | NUR ---
PT HAD LARGE BM X 1, SOFT, BROWN IN COLOR. SKIN INTACT, NO REDNESS IN PERIAREA. WILL CONTINUE TO MONITOR.
--- NOTE | 2017-04-10 17:25 | NUR ---
DR SINGH AT BEDSIDE. UPDATES PROVIDED. PER DR SINGH PLACE NG TUBE AND DC OGT IN PREPARATION FOR POSSIBLE EXTUBATION. NO OTHER ORDERS AT THIS TIME.
--- NOTE | 2017-04-10 17:31 | NUR ---
NGT PLACED IN R NARE BY TESTER SOUND KARINA WITH 12 FR NGT, AIR AUSCULTATED OVER EPIGASTRIC AREA. WILL VERIFY VIA KUB, RADIOLOGY NOTIFIED.
--- NOTE | 2017-04-10 17:41 | NUR ---
RADIOLOGY AT BEDSIDE FOR KUB TO VERIFY NG PLACEMENT.
--- NOTE | 2017-04-10 17:58 | NUR ---
ZENOBIA REES AT BEDSIDE TO EXTUBATE PT. PT EXTUBATED AT THIS TIME VIA ORDER AND PT PLACED ON 3L NC. PT SATING WELL AT 97%. WILL CONTINUE TO MONITOR PT AT THIS TIME.
--- NOTE | 2017-04-10 18:26 | NUR ---
CENTRAL LINE DRESSING ON RIJ CHANGED AT THIS TIME USING STERILE TECHNIQUE. WILL CONTINUE TO MONITOR PT AT THIS TIME.
--- NOTE | 2017-04-10 20:00 | NUR ---
EYES OPEN, WITH POOR EYE CONTACT, NON-VERBAL, NO S/S OF PAIN/DISCOMFORT. HOB ELEVATED AT 45 DEGREES. RESPIRATION EVEN AND UNLABORED WITH EXPIRATORY WHEEZES, ON RT PROTOCOL TOLERATING BREATHING TREATMENT ORDERED. RIJ CENTRAL LINE INTACT AND PATENT WITH IVF NS AT 20CC/HR. LAMAR CATH TO BSD WITH CLEAR YELLOW URINE OUTPUT. WILL CONTINUE TO MONITOR.
[2017-04-11] VITALS (8 sets, daily range): BP systolic 113–132; BP diastolic 68–76
--- NOTE | 2017-04-11 00:10 | NUR ---
NGT INTACT AND PATENT. NGT FEEDING OF NUTREN PULMONARY AT 30CC/HR TOLERATING WELL. NO GASTRIC RESIDUAL NOTED. TURNED AND REPOSITIONED FOR COMFORT. KEPT CLEAN AND DRY.
[2017-04-11 04:55] LABS: BASOPHIL % 0.2 % (0-2)
[2017-04-11 04:59] LABS: PLATELET COUNT 436 x10^3mcL (130-400); RED CELL DISTRIBUTION WIDTH 14.6 % (11.5-14.5)
[2017-04-11 05:02] LABS: CALCIUM 8.6 mg/dL (8.5-10.1); CHLORIDE SERUM 102 mmol/L (98-107); CREATININE SERUM 1.2 mg/dL (0.7-1.3); GFR1 > 60 mL/min; GLUCOSE SERUM 91 mg/dL (74-106); MAGNESIUM 2.1 mg/dL (1.8-2.4); POTASSIUM SERUM 4.1 mmol/L (3.5-5.1); SODIUM SERUM 137 mmol/L (136-145)
--- NOTE | 2017-04-11 05:14 | NUR ---
INCONTINENT OF BOWEL FI=UNCTION X1 WITH LARGE BROWNISH STOOL SOFT INCONSISTENCY. PARTIAL BED BATH GIVEN AND WELL TOLERATED. BARRIER CREAM APPLIED. NGT FLUSHED WITH WATER ORDERED. NO N/V NOTED.
--- NOTE | 2017-04-11 06:22 | NUR ---
DR KNUTSON AT BEDSIDE, UPDATED PT'S CONDITION, NO NEW ORDERS GIVEN. BLOOD SUGAR 90MG/DL, NO S/S OF GLYCEMIC REACTION.
--- NOTE | 2017-04-11 07:44 | NUR ---
RECEIVED PATIENT FROM SIRISHA VALENTINE NON VERBAL, RESPONDS TO VERBAL STIMULI, FOLLOW WITH EYES, ABLE TO FOLLOW SIMPLE COMMANDS, GENERALIZED WEAKNESS NOTED. RESPIRATIONS EVEN AND UNLABORED, ON 3L O2 NC WITH O2 SAT 99% RESPIRAITONS 17 AND NO S/S OF SOB. PALPABLE PULSES TO BUE/BLE. VOIDS WITH F/C IN PLACE BY GRAVITY DRAINING YELLOW COLORED URINE. TUBE FEEDINGS NUTREN PULONARY INFUSING AT 30ML/HR, H2O FLUSH Q4H WITH NO RESIDUAL NOTED, AND ASPIRATION PRECAUTIONS IN PLACE. RIJ CDI WITH NS INFUSING NS AT 20ML/HR. CALL LIGHT WITH REACH, FALL PRECAUTIONS IN PLACE, AND WILL CONTINUE TO MONITOR.
--- NOTE | 2017-04-11 08:29 | NUR ---
RT DECREASED 02 TO 2L, O2 SAT 98%, WILL CONTINUE TO MONITOR.
--- NOTE | 2017-04-11 08:29 | NUR ---
LAMAR CARE PROVIDED BY KD GRIMM.
--- NOTE | 2017-04-11 08:29 | NUR ---
RT IN TO PROVIDE BREATHING TREATMENT. 02 WAS REDUCED FROM 3L TO 2L PT SAT IS 99-100% ON 3L.
--- NOTE | 2017-04-11 08:46 | NUR ---
PATIENT ROUNDS WITH DR. CASTRO AND RESIDENTS. CHARGE NURSE AND PRIMARY NURSE AT BEDSIDE. UPDATES PROVIDED. POC DISCUSSED. WILL CONTINUE TO MONITOR.
--- NOTE | 2017-04-11 11:30 | NUR ---
PATIENT NON VERBAL, WATCHING TV, RESPONDS TO VERBAL STIMULI, FOLLOW WITH EYES, ABLE TO FOLLOW SIMPLE COMMANDS, GENERALIZED WEAKNESS NOTED. RESPIRATIONS EVEN AND UNLABORED, ON 2L O2 NC WITH O2 SAT 95% RESPIRAITONS 12 AND NO S/S OF SOB. PALPABLE PULSES TO BUE/BLE. VOIDS WITH F/C IN PLACE BY GRAVITY DRAINING YELLOW COLORED URINE. TUBE FEEDINGS NUTREN PULONARY INFUSING AT 30ML/HR, H2O FLUSH Q4H WITH NO RESIDUAL NOTED, AND ASPIRATION PRECAUTIONS IN PLACE. RIJ CDI WITH NS INFUSING NS AT 20ML/HR. CALL LIGHT WITH REACH, FALL PRECAUTIONS IN PLACE, AND WILL CONTINUE TO MONITOR.
--- NOTE | 2017-04-11 15:10 | NUR ---
PATIENT HAD ONE SOFT BROWN BM, GAVE BED BATH AND DID BILL BATH, PATIENT NOW CLEAN AND DRY, CALL LIGHT WITHIN REACH, AND WILL CONTINUE TO MONITOR.
--- NOTE | 2017-04-11 15:40 | NUR ---
REPORT GIVEN TO AUGUSTA GRIMM, ALL QUESTIONS AND CONCERNS ADDRSSED, WILL CONTINUE TO MONITOR.
--- NOTE | 2017-04-11 16:10 | NUR ---
TRANFSERED PATIENT TO [facility] ENDORSED CARE TO AUGUSTA RN, PATIENT AWAKE AND ALERT FOLLOWS WITH EYES, ON 2L O2 NC RESPIRATIONS EVEN AND UNLABORED WITH NO SIGNS OF SOB, F/C IN PLACE DRAINING YELLOW COLORED URINE BY GRAVITY, NO S/C OF PAIN. NG TUBE IN PLACE AND INTACT. RIJ CDI WITH ALL PORTS PATENT.
--- NOTE | 2017-04-11 16:35 | NUR ---
PT ARRIVED ON UNIT, VITAL SIGNS STABLE, 2 L NC, RESPONDS TO NAME BY SAYING YES, GRUNTS, UNABLE TO MAKE NEEDS KNOWN AND ONLY USES WORDS YES OR NO. TELE #11, NSR, HR: 90, CENTRAL LINE IN [facility], SITE WNL, NS @ 20 ML/HR, LUNG SOUNDS: CRACKLES, CONGESTED, TRACE EDEMA BLE, SKIN INTACT, OG TUBE WITH FEEDINGS @30 ML/HR, LAMAR CATH IN PLACE DRAINING CLEAR, YELLOW URINE.
--- NOTE | 2017-04-11 17:25 | NUR ---
* ST NOTE * Pt seen at bedside with RT and nsg present. Bedside Dysphagia and oral mechanism exams completed. See evaluation report for further details. Pt tolerating 3/3 alternating PO trials of puree apple sauce 3-5 CCs at a time via a teaspoon w/out s/s of aspiration. Pt also tolerating 3/3 alternating PO trials of honey-thickened apple juice 3-5 CCs at a time via a spoon as well w/out s/s of aspiration exhibiting clear voicing WFL w/out wet or gargly vocal quality after PO intake of HTL. Pt and nsg education completed regarding safe swallow compensatory strategies pt and caregivers/staff could employ during PO intake to aid pt with swallow function, with pt and caregiver/nsg agreeable with and verbalizing understanding of clinician's recommendations. Pt and caregiver/nsg education completed regarding results of evaluation, benefits of receiving skilled [employer] services, POC & prognosis for improvement, with pt and caregiver/nsg agreeable with and verbalizing understanding of clinician's recommendations. Recommend: - D/C NPO status - Begin Oral Gratification of Puree textures with Honey-thick liquids 3x/day for all meals - CLOSE supervision during PO intake by caregivers/staff to assure STRICT aspiration precautions are in place secondary to pt's hx of aspiration PNA - Pt requires total assistance with feeding - If pt presents with s/s of aspiration/choking during or after PO intake, stop feeding immediately - Suction PRN ST to follow up 1-2x in next 1 week to further assess tolerance of PO intake, least restrictive PO diet consistency and swallow function. G8996 CK G8997 CJ NOMS Level 3 Time In/Out 16:25 - 17:10
--- NOTE | 2017-04-11 18:38 | NUR ---
PT RESTING IN BED, NO RESPIRATORY DISTRESS NOTED, CALM, IN NO APPARANT PAIN.
--- NOTE | 2017-04-11 19:00 | NUR ---
RECEIVED REPORT FROM SIRISHA ROSE ALL QUESTIONS ADDRESSED, WILL TAKE OVER CARE
--- NOTE | 2017-04-11 20:02 | NUR ---
PT IN BED RESTING, GENERALIZED WEAKNESS, LINMITED ACTIVE ROM, HX DOWN SYNDROME. SPEACH LIMITED, EYES OPEN SPONTANEOUSLY, NO HEADACHE, TRACHEA MIDLINE, NO DRAINAGE EENT, NO COUGH OR SECRETIONS, ORAL MUCOSA PINK AND DRY. RESPIRATIONS EQUAL AND UNLABORED, NO DISTRESS. CHEST WALL STABLE, NO CP, DIZZINESS, OR SYNCOPE. SKIN APPROPRIATE FOR ETHNICITY, WAM AND DRY CAP REFILL <3, PULSES [place]. NO CONTRACTURES. GOING TO START PUREE DIET, NO N/V. ABD SOFT, ROUND, NONTENDER, BOWEL SOUNDS ACTIVE X4, NO BM. F/C IN PLACE DRAINING TO GRAVITY, URINE YELLOW, NO PENIAL EDEMA OR DRAINAGE. CALM AND COOPERATIVE, WILL CONTINUE TO MONITOR
--- NOTE | 2017-04-11 21:47 | NUR ---
NGT REMOVED PER DOCTOR'S ORDER. ASPIRATION PRECAUTION MAINTAINED. PATIENT TOLERATING PUREE DIET AT THIS TIME.
--- NOTE | 2017-04-12 02:00 | NUR ---
PT IN BED RESTING, NO DISTRESS NOTED, WILL CONTINUE TO MONITOR.
[2017-04-12 06:29] LABS: BASOPHIL % 0.4 % (0-2); RED CELL DISTRIBUTION WIDTH 14.5 % (11.5-14.5)
[2017-04-12 06:36] LABS: PLATELET COUNT 440 x10^3mcL (130-400)
[2017-04-12 06:53] VITALS: BP 111/69
[2017-04-12 06:57] LABS: CALCIUM 8.7 mg/dL (8.5-10.1); CARBON DIOXIDE 27.7 mmol/L (21-32); CHLORIDE SERUM 100 mmol/L (98-107); CREATININE SERUM 1.3 mg/dL (0.7-1.3); GFR1 > 60 mL/min; GLUCOSE SERUM 86 mg/dL (74-106); MAGNESIUM 2.2 mg/dL (1.8-2.4); PHOSPHOROUS 4.2 mg/dL (2.5-4.9); POTASSIUM SERUM 4.1 mmol/L (3.5-5.1); SODIUM SERUM 134 mmol/L (136-145)
--- NOTE | 2017-04-12 07:16 | NUR ---
REPORT GIVEN TO SIRISHA PRUITT ALL QUESTIONS ADDRESSED, WILL ENDORSE CARE
--- NOTE | 2017-04-12 08:29 | NUR ---
SLEEPING. HOB ELEVATED 30 DEGREES. BREATHING FREELY ON 02 2L NC. EXP RALES. NO RESP DISTRESS. AWAKENS TO VERBAL. NS INFUSING 20 CC HOUR TO RT IJ. ABD SOFT. LAMAR DRAINING YELLOW,CLEAR URINE. TELE # 11 NSR. NO S/S PAIN. POSITIONED WITH PILLOWS. TOTAL CARE. TURNED AND REPOSITIONED Q 2 HOURS.
[2017-04-12 09:31] VITALS: BP 90/54
[2017-04-12 14:14] VITALS: BP 93/56
--- NOTE | 2017-04-12 14:46 | NUR ---
LAMAR CARE AND BILL BATH GIVEN. SEEN BY NEW RESIDENT DR. RHOADES. BATHED BY CNAS X 2.
--- NOTE | 2017-04-12 17:17 | NUR ---
HAS BEEN RESTING QUIETLY ENTIRE SHIFT. POOR APPETITE WITH LUNCH. NS INFUSING 20 CC HOUR TO RT IJ. ALL PORTS PATENT. TELE # 11 SR. TOTAL CARE. RESISTS BEING REPOSITIONED. SKIN INTACT. RECEIVES VANCO PO AND IV. RT PROTOCOL. NO S/S PAIN. PUREE DIET. CONTACT ISOLATION FOR MRSA TO SPUTUM AND CDIFF.
[2017-04-12 17:26] VITALS: BP 105/68
--- NOTE | 2017-04-12 19:30 | NUR ---
SEEN LAYING IN BED WATCHING TV, NO RESP DISTRESS NOTED, O2 2LPM N/C MAINTAINED. HOB AT 45 DEG. PATIENT IS DOWN SYNDORM, DEMENTIA. ABLE TO RESPOND YES/NO. ASPIRATION PRECAUTION. ON PUREE DIET. TLC TO RIJ ALL PORT FLUSHED PATENT. IVF NS INFUSING AT 20ML/HR. LAMAR CATH DRAINING TO GRAVITY YELLOW URINE OUTPUT. CONTINUED REPOSITIONED 2HRS. CONTACT ISOLATION FOR MRSA AND C-DIFF. WILL CONTINUE TO MONITOR.
[2017-04-12 20:36] VITALS: BP 103/65
--- NOTE | 2017-04-12 21:30 | NUR ---
REPOSITIONED TO LEFT SIDE. NO ACUTE DISTRESS NOTED. WILL CONTINUE TO MONITOR.
--- NOTE | 2017-04-13 00:04 | NUR ---
VANCOMYCIN MIXED WITH APPLE SAUCE GIVEN. TOLERATED WELL. NO ASPIRATION NOTED.
[2017-04-13 05:28] VITALS: BP 107/68
--- NOTE | 2017-04-13 06:36 | NUR ---
NO ANY DISTRESS THROUGHOUT SHIFT. FSBS THIS AM =101. MEDS CRUSHED AND MIXED WITH APPLE SAUCE, NO ASPIRATION NOTED. REPOSITIONED Q 2HRS CONTINUED. LAMAR CATH DRAINING OUT 950ML CLEAR YELLOW URINE OUTPUT THROUGHOUT SHIFT. TLC ALL PORTS FLUSHED PATENT, DRSG CDI.
--- NOTE | 2017-04-13 08:28 | NUR ---
OPENS EYES TO VERBAL. NO VERBAL RESPONSE. BREATHING FREELY ON 2L NC. LUNG SOUND CLEAR,DIMINISHED. NO RESP DISTRESS NOTED. HOB ELEVATED. TELE # 11 NSR. TRIPLE LUMEN TO RT IJ ALL 3 PORTS PATENT. HYPOACTIVE BOWEL SOUNDS. ABD SOFT. LAMAR DRAINING CLEAR YELLOW URINE. BED IN LOW POSITION. SR UP X 2 FOR SAFETY. SKIN INTACT. HEPARIN SQ. WATCHING TV CALL LIGHT WITHIN RECH. TOTAL CARE. TURNED AND REPOSITIONED Q 2 HOURS.
[2017-04-13 10:44] VITALS: BP 103/62
--- NOTE | 2017-04-13 13:05 | NUR ---
LAMAR CARE AND BILL WIPE BATH GIVEN. TURNED AND REPOSITINED WITH ASSIST FRON VAISHNAVI.
--- NOTE | 2017-04-13 15:02 | NUR ---
RESTING QUIETLY. NO S/S PAIN. CONTINUES ON 2L NC AND RT PROTOCOL.
[2017-04-13 18:03] VITALS: BP 121/49
--- NOTE | 2017-04-13 18:30 | NUR ---
REFUSED DINNER. RESISTENT TAKING ORAL MEDS. CONTINUES ON NS 20 CC HOUR AND VANCO IV AND ORAL. TOTAL CARE. TURNED AND REPOSITIONED Q 2 HOURS. CONTACT ISOLATION FOR MRSA TO SPUTUM AND C DIFF. RT PROTOCOL.
--- NOTE | 2017-04-13 19:02 | NUR ---
SEEN AWAKE IN BED WATCHING TV, NO RESP DISTRESS NOTED. O2 2LPM NC/ MAINTAINED. HOB AT 45DEG. REFUSED DINNER OFFERRED. HAS EYES CONTACT, ABLE TO SAY YES/NO. TLC TO RIJ FLUSHED PATENT, NS INFUSING AT 20ML/HR. LAMAR CATH DRAINING TO GRAVITY YELLOW URINE OUTPUT NOTED. TOTAL CARE, CONTINUED TURN Q 2HRS. CALL LIGHT REINSTRUCTED AND PLACED WITHIN REACH. SIDERAILS UPX2. CONTACT ISOLATION FOR C DIFF MAINTAINED.
[2017-04-13 21:24] VITALS: BP 112/63
[2017-04-14 05:26] VITALS: BP 114/66
[2017-04-14 06:07] LABS: BASOPHIL % 1.2 % (0-2)
[2017-04-14 06:31] LABS: CALCIUM 8.6 mg/dL (8.5-10.1); CARBON DIOXIDE 28.9 mmol/L (21-32); CHLORIDE SERUM 102 mmol/L (98-107); CREATININE SERUM 1.3 mg/dL (0.7-1.3); GFR1 > 60 mL/min; GLUCOSE SERUM 89 mg/dL (74-106); PHOSPHOROUS 4.5 mg/dL (2.5-4.9); SODIUM SERUM 136 mmol/L (136-145)
--- NOTE | 2017-04-14 06:34 | NUR ---
NO SIGNIFICANT CHANGE THROUGHOUT SHIFT. VSS. ALL DUE MEDS GIVEN, NO ASPIRATION NOTED. TURNED AND REPOSITIONED Q 2HRS. HAD SOFT BM X1. LAMAR CATH DRAINING OUT WELL WITH YELLOW URINE. TLC WITH DRSG CDI, ALL PORTS PATENT. IVF NS CONTINUED AT 20ML/HR.
--- NOTE | 2017-04-14 06:41 | NUR ---
TELEMETRY REMOVED, CLEANED AND RETURNED TO [facility]/SURG PATIENT.
[2017-04-14 07:10] LABS: PLATELET COUNT 439 x10^3mcL (130-400); RED CELL DISTRIBUTION WIDTH 15.5 % (11.5-14.5)
[2017-04-14 07:11] LABS: rbc morphology (normal/abnorm) ABNORMAL (NORMAL)
--- NOTE | 2017-04-14 08:00 | NUR ---
RECEIVED APTIENT ALERT, MENTAL CHALLENGE WITH DOWN'S SYNDROME. ABLE TO SAY "YES" OR "NO" ONLY. NO RESP DISTRESS ON 2L VIA N/C. OCCASIONAL COUGHING AND SWALLOW SPUTUM. BREATHING SOUND DIMINISHED ZACK BASES W/ RHOCHI TO ZACK UPPER LOBES. O2 SAT 93% ON RA. IMPROVED O2 SAT TO 99% ON 2L VIA N/C. LAMAR PATENT W/ YELLOW URINE OUTPUT NOTED. BM INCONT. HAD LOOSE BM THIS PATIENT CENTERED CARE SPECIALIST. TOLERATED PUREED DIET. FINISHED 40% OF BREAKFAST. NO N/V. NO S/S OF PAIN. CENTRAL LINE TO RIJ INTACT. NO REDNESS/SWELLING. ALL 3 PORTS OF CENTRAL LINE PATENT. CONTACT ISOLATION FOR MRSA (+) NARES AND C-DIFF STOOL. AIR MATTRESS APPLIED. PATIENT REFUSED REPOSITION AND OUT OF BED. BED ALARM ON. ROOM CLOSES TO NURSING STATION.
--- NOTE | 2017-04-14 08:30 | NUR ---
DR. PRYOR AND MEDICAL TEAM MADE MORNING ROUND.
[2017-04-14 09:56] VITALS: BP 104/64
--- NOTE | 2017-04-14 13:00 | NUR ---
FINISHED 70% OF PUREED DIET LUNCH BY FEEDING. PATIENT'S BROTHER CAME TO VISIT HIM AND SHOWED OLD PICTURES. PATIENT SMILED WHEN HE SAW THE PICTURES OF HIS PARENTS.
--- NOTE | 2017-04-14 13:20 | NUR ---
PHYSICAL THERAPY DAILY NOTES CO-SIGN All documentation done by the Marine Tower Operator for 04/14/17 has been reviewed. I agree with the documentation. Reviewed/Co-Signed by: Yoel Villegas PT Documentation Done by: ESTER CHOWDHURY QUALITY ASSURANCE ASSESSOR PT CONTINUES TO NEED HEAVY VC'S FOR SEQUECING OF ACTIVITY
[2017-04-14] MEDS ORDERED: VANCOCIN125 MG NG (14:07)
[2017-04-14] MEDS ORDERED: PROTONIX40 MG/Pac1 PO (14:13)
[2017-04-14] MEDS ORDERED: IPRATROPIUM BROM3 M2 HHN (14:14)
[2017-04-14] MEDS ORDERED: BACTRIM DS1 TAB PO (14:21)
[2017-04-14 14:30] VITALS: BP 104/64
--- NOTE | 2017-04-14 15:15 | NUR ---
LAMAR D/C'D. 800CC OF YELLOWISH URINE COLLECTED. LAMAR CATHETER INTACT.
--- NOTE | 2017-04-14 17:20 | NUR ---
CENTRAL LINE D/C'D PER ORDER. ALL PORT AND LINES INTACT. SITE CLEAN. NO RDNESS, NO BLEEDING.
--- NOTE | 2017-04-14 17:47 | NUR ---
WILL BE TRANSFERED TO SNF OF [facility]. REPORT GIVEN TO GISELL, NURSING DIPPER OPERATOR.
--- NOTE | 2017-04-14 18:44 | NUR ---
D/C TO [facility] VIA MEDICAL TRANSPORTATION. CONDITION STABLE.
--- NOTE | 2017-04-16 10:14 | NUR ---
DIGITAL STRATEGIST note (discharge summary report) S: Pt was provided with bedside swallow evaluation on 03/31/2017. Pt was discharged from DIGITAL STRATEGIST intervention on 04/02/2017 due to pt was intubated and no longer appropriate for DIGITAL STRATEGIST intervention. Pt was provided with bedside swallow re-evaluation on 04/11/2017. O/A: Per initial bedside swallow evaluation (03/31/2017): pt was recommended for strict NPO status (careful oral cares with concurrent suctioning only), consider alternative method(s) of nutrition/hydration/medication vs comfort measures as appropriate, dysphagia therapy for continued assessment of pt's ability to take PO safely. Per bedside swallow re-evaluation (04/11/2017): pt was recommended for oral gratification of pureed textures with honey-thick liquids 3x day, 100% feeding assistance, strict aspiration precautions, suction PRN, dysphagia therapy. P: Pt was discharged on 04/14/2017 to SNF prior to provision of dysphagia therapy. Recommend SNF DIGITAL STRATEGIST to f/u for dysphagia/diet tolerance, as appropriate. G-codes: [id number] [facility] NOMS level 3
== END 2017-04-14 18:40 | DRG 870 ==
LOC: ED 01:56 → IC 04:33 → ED 04:33 → IC 08:05 → DU 04-11 16:21 → MU 04-14 06:28
PROVIDERS: Emergency Medicine; Family Medicine; ADMIT Family Medicine
PROC: 5A1955Z Respiratory Ventilation, Greater than 96 Consecutive Hours (ICD-10-PCS; principal; 2017-03-31)
PROC: 0BH17EZ Insertion of Endotracheal Airway into Trachea, Via Natural or Artificial Opening (ICD-10-PCS; 2017-03-31)
PROC: 05HM33Z Insertion of Infusion Device into Right Internal Jugular Vein, Percutaneous Approach (ICD-10-PCS; 2017-03-31)
PROC: B543ZZA Ultrasonography of Right Jugular Veins, Guidance (ICD-10-PCS; 2017-03-31)
DX: A41.9 Sepsis, unspecified organism (principal); J69.0 Pneumonitis due to inhalation of food and vomit; E43 Unspecified severe protein-calorie malnutrition; J96.00 Acute respiratory failure, unspecified whether with hypoxia or hypercapnia; N17.0 Acute kidney failure with tubular necrosis; R65.21 Severe sepsis with septic shock; A04.7 Enterocolitis due to Clostridium difficile; E87.0 Hyperosmolality and hypernatremia; E03.9 Hypothyroidism, unspecified; K59.09 Other constipation; F31.9 Bipolar disorder, unspecified; E83.39 Other disorders of phosphorus metabolism; E83.42 Hypomagnesemia; M10.9 Gout, unspecified; K21.9 Gastro-esophageal reflux disease without esophagitis; D64.9 Anemia, unspecified; Q90.9 Down syndrome, unspecified; Z68.25 Body mass index [BMI] 25.0-25.9, adult; F03.90 Unspecified dementia, unspecified severity, without behavioral disturbance, psychotic disturbance, mood disturbance, and anxiety; Z22.322 Carrier or suspected carrier of Methicillin resistant Staphylococcus aureus
CPT/HCPCS: 36556; 36600; 83880; 84439; 87046; 87046-59; 90732; 92610; 92610-GN; 97110-GP; 97530-GP; A4628; C9113; J0330; J1642; J1644; J1940; J1956; J2060; J2250; J2270; J2920; J3010; J3370; J3475; J3480; J3490; J7030; J7040; J7620; J7626; Q0092

== ENCOUNTER 2017-04-27 09:01 | Inpatient (IN) | payer OTHER, MEDICAID ==
[~2017-04-27] VITALS: Ht 162.6 cm; Wt 63.5 kg
[~2017-04-27 09:01] MED LIST changes: +BACTRIM DS1 TAB PO; +PROTONIX40 MG/Pac1 PO; +VANCOCIN125 MG NG
[2017-04-27 09:36] LABS: BASOPHIL % 0.1 % (0-2); PLATELET COUNT 290 x10^3mcL (130-400)
[2017-04-27 09:41] LABS: RED CELL DISTRIBUTION WIDTH 15.8 % (11.5-14.5)
[2017-04-27 09:56] LABS: CALCIUM 9.5 mg/dL (8.5-10.1); CARBON DIOXIDE 22.9 mmol/L (21-32); CREATININE SERUM 1.5 mg/dL (0.7-1.3); POTASSIUM SERUM 4.3 mmol/L (3.5-5.1)
[2017-04-27 10:11] LABS: ALBUMIN 3.4 g/dL (3.4-5.0); C REACTIVE PROTEIN 4.3 mg/dL (<=0.9); TOTAL PROTEIN, SERUM 9.4 g/dL (6.4-8.2)
[2017-04-27 10:12] LABS: CK-MB < 0.5 ng/mL (0-3.6); CREATINE KINASE 226 U/L (39-308)
[2017-04-27 10:13] LABS: microscopic required? NO
[2017-04-27 10:15] LABS: FREE T4 1.39 ng/dL (0.76-1.46); FREE THYROXINE INDEX 3.6 ug/dL (1.4-4.5); T4(THYROXINE) 9.7 ug/dL (4.7-13.3)
[2017-04-27 10:34] LABS: UA SPECIFIC GRAVITY 1.025 (1.005-1.035); urine erythrocyte NEGATIVE (NEGATIVE)
[2017-04-27 11:01] LABS: CHOLESTEROL/HDL RATIO 2.3; MAGNESIUM 1.8 mg/dL (1.8-2.4); PHOSPHOROUS 2.9 mg/dL (2.5-4.9)
[2017-04-27 11:29] VITALS: BP 105/80
[2017-04-27 13:16] LABS: T3 TOTAL 0.92 ng/mL
[2017-04-27 13:32] VITALS: BP 120/74
[2017-04-27 13:35] LABS: ERYTHROCYTE SED RATE 74 mm/hr (0-20)
[2017-04-27 17:44] VITALS: BP 113/68
[2017-04-27 20:42] VITALS: BP 100/66
[2017-04-28 06:22] VITALS: BP 138/84
[2017-04-28 06:43] LABS: BASOPHIL % 0.4 % (0-2); PLATELET COUNT 216 x10^3mcL (130-400)
[2017-04-28 06:53] LABS: RED CELL DISTRIBUTION WIDTH 16.5 % (11.5-14.5)
[2017-04-28 06:59] LABS: CALCIUM 8.6 mg/dL (8.5-10.1); CARBON DIOXIDE 23.5 mmol/L (21-32); CHLORIDE SERUM 115 mmol/L (98-107); GFR1 > 60 mL/min; GLUCOSE SERUM 94 mg/dL (74-106); POTASSIUM SERUM 3.9 mmol/L (3.5-5.1); SODIUM SERUM 147 mmol/L (136-145)
[2017-04-28 07:09] LABS: rbc morphology (normal/abnorm) ABNORMAL (NORMAL)
[2017-04-28 09:05] VITALS: BP 129/78
[2017-04-28 17:23] VITALS: BP 133/75
[2017-04-28 21:22] VITALS: BP 109/79
[2017-04-29 05:29] VITALS: BP 122/79
[2017-04-29 06:09] LABS: BASOPHIL % 0.2 % (0-2); PLATELET COUNT 175 x10^3mcL (130-400)
[2017-04-29 06:18] LABS: RED CELL DISTRIBUTION WIDTH 15.9 % (11.5-14.5)
[2017-04-29 06:33] LABS: CALCIUM 8.3 mg/dL (8.5-10.1); CHLORIDE SERUM 113 mmol/L (98-107); GFR1 > 60 mL/min; GLUCOSE SERUM 97 mg/dL (74-106); MAGNESIUM 1.5 mg/dL (1.8-2.4); PHOSPHOROUS 2.4 mg/dL (2.5-4.9); POTASSIUM SERUM 3.8 mmol/L (3.5-5.1); SODIUM SERUM 145 mmol/L (136-145)
[2017-04-29 08:01] LABS: rbc morphology (normal/abnorm) ABNORMAL (NORMAL)
[2017-04-29 10:19] VITALS: BP 118/77
[2017-04-29 17:40] VITALS: BP 129/77
[2017-04-29 22:02] VITALS: BP 134/80
[2017-04-30 05:19] VITALS: BP 107/50
[2017-04-30 07:46] LABS: BASOPHIL % 0.3 % (0-2); PLATELET COUNT 174 x10^3mcL (130-400)
[2017-04-30 07:52] LABS: RED CELL DISTRIBUTION WIDTH 15.6 % (11.5-14.5); rbc morphology (normal/abnorm) ABNORMAL (NORMAL)
[2017-04-30 08:18] LABS: CALCIUM 8.2 mg/dL (8.5-10.1); CARBON DIOXIDE 25.1 mmol/L (21-32); CHLORIDE SERUM 107 mmol/L (98-107); GFR1 > 60 mL/min; GLUCOSE SERUM 88 mg/dL (74-106); MAGNESIUM 1.5 mg/dL (1.8-2.4); PHOSPHOROUS 2.9 mg/dL (2.5-4.9); POTASSIUM SERUM 3.6 mmol/L (3.5-5.1); SODIUM SERUM 141 mmol/L (136-145)
[2017-04-30 10:02] VITALS: BP 114/71
[2017-04-30 13:26] VITALS: BP 114/71
[2017-04-30 17:22] VITALS: BP 128/76
[2017-04-30 22:11] VITALS: BP 124/81
[2017-05-01 05:43] VITALS: BP 146/91
[2017-05-01 06:32] LABS: BASOPHIL % 0.4 % (0-2); PLATELET COUNT 168 x10^3mcL (130-400)
[2017-05-01 06:35] LABS: RED CELL DISTRIBUTION WIDTH 15.5 % (11.5-14.5)
[2017-05-01 06:43] LABS: CARBON DIOXIDE 24.2 mmol/L (21-32); CHLORIDE SERUM 102 mmol/L (98-107); GFR1 > 60 mL/min; GLUCOSE SERUM 87 mg/dL (74-106); MAGNESIUM 1.8 mg/dL (1.8-2.4); PHOSPHOROUS 2.9 mg/dL (2.5-4.9); SODIUM SERUM 140 mmol/L (136-145)
[2017-05-01 08:21] VITALS: BP 127/79
[2017-05-01 09:26] LABS: rbc morphology (normal/abnorm) ABNORMAL (NORMAL)
[2017-05-01 17:29] VITALS: BP 132/75
[2017-05-01 21:45] VITALS: BP 109/67
[2017-05-02 05:45] VITALS: BP 123/65
[2017-05-02 06:14] LABS: BASOPHIL % 0.4 % (0-2); PLATELET COUNT 184 x10^3mcL (130-400)
[2017-05-02 06:31] LABS: RED CELL DISTRIBUTION WIDTH 15.9 % (11.5-14.5); rbc morphology (normal/abnorm) ABNORMAL (NORMAL)
[2017-05-02 06:35] LABS: CALCIUM 8.1 mg/dL (8.5-10.1); CARBON DIOXIDE 26.7 mmol/L (21-32); CHLORIDE SERUM 109 mmol/L (98-107); CREATININE SERUM 0.9 mg/dL (0.7-1.3); GFR1 > 60 mL/min; GLUCOSE SERUM 99 mg/dL (74-106); POTASSIUM SERUM 3.5 mmol/L (3.5-5.1); SODIUM SERUM 142 mmol/L (136-145)
[2017-05-02 10:07] VITALS: BP 123/77
[2017-05-02 17:25] VITALS: BP 134/82
[2017-05-02 21:30] VITALS: BP 128/82
[2017-05-03 06:02] VITALS: BP 136/84
[2017-05-03 09:15] VITALS: BP 114/74
[2017-05-03 17:35] VITALS: BP 135/80
[2017-05-03 21:04] VITALS: BP 135/81
[2017-05-04 05:36] VITALS: BP 127/79
[2017-05-04 06:57] LABS: CALCIUM 8.4 mg/dL (8.5-10.1); CARBON DIOXIDE 24.6 mmol/L (21-32); CHLORIDE SERUM 108 mmol/L (98-107); CREATININE SERUM 0.9 mg/dL (0.7-1.3); GFR1 > 60 mL/min; GLUCOSE SERUM 96 mg/dL (74-106); POTASSIUM SERUM 3.4 mmol/L (3.5-5.1); SODIUM SERUM 141 mmol/L (136-145)
[2017-05-04 07:04] LABS: BASOPHIL % 0.7 % (0-2); PLATELET COUNT 210 x10^3mcL (130-400)
[2017-05-04 07:10] LABS: RED CELL DISTRIBUTION WIDTH 16.3 % (11.5-14.5)
[2017-05-04 10:25] VITALS: BP 136/68
[2017-05-04 17:28] VITALS: BP 126/63
[2017-05-04 21:51] VITALS: BP 132/85
[2017-05-05 05:53] VITALS: BP 114/69
[2017-05-05 06:43] LABS: BASOPHIL % 0.9 % (0-2); PLATELET COUNT 221 x10^3mcL (130-400)
[2017-05-05 06:50] LABS: CALCIUM 8.6 mg/dL (8.5-10.1); CARBON DIOXIDE 29.1 mmol/L (21-32); CHLORIDE SERUM 107 mmol/L (98-107); GFR1 > 60 mL/min; GLUCOSE SERUM 98 mg/dL (74-106); POTASSIUM SERUM 3.8 mmol/L (3.5-5.1); SODIUM SERUM 140 mmol/L (136-145)
[2017-05-05 06:52] LABS: RED CELL DISTRIBUTION WIDTH 16.7 % (11.5-14.5)
[2017-05-05 06:53] LABS: rbc morphology (normal/abnorm) ABNORMAL (NORMAL)
[2017-05-05 09:00] VITALS: BP 123/70
[2017-05-05 13:02] VITALS: Ht 162.6 cm; Wt 63.5 kg
[2017-05-05 17:00] VITALS: BP 125/61
[2017-05-05 21:56] VITALS: BP 129/59
[2017-05-06 05:45] VITALS: BP 101/55
[2017-05-06 06:21] LABS: CALCIUM 8.4 mg/dL (8.5-10.1); CARBON DIOXIDE 24.4 mmol/L (21-32); CHLORIDE SERUM 106 mmol/L (98-107); GFR1 > 60 mL/min; GLUCOSE SERUM 97 mg/dL (74-106); POTASSIUM SERUM 3.6 mmol/L (3.5-5.1); SODIUM SERUM 140 mmol/L (136-145)
[2017-05-06 06:28] LABS: BASOPHIL % 0.4 % (0-2); PLATELET COUNT 202 x10^3mcL (130-400)
[2017-05-06 07:55] LABS: RED CELL DISTRIBUTION WIDTH 16.8 % (11.5-14.5)
[2017-05-06 10:15] VITALS: BP 151/80
[2017-05-06 18:07] VITALS: BP 130/71
[2017-05-06 21:17] VITALS: BP 133/72
[2017-05-07 05:38] VITALS: BP 121/73
[2017-05-07 06:24] LABS: CALCIUM 8.6 mg/dL (8.5-10.1); CHLORIDE SERUM 105 mmol/L (98-107); GFR1 > 60 mL/min; GLUCOSE SERUM 95 mg/dL (74-106); POTASSIUM SERUM 3.5 mmol/L (3.5-5.1); SODIUM SERUM 137 mmol/L (136-145)
[2017-05-07 06:39] LABS: BASOPHIL % 0.6 % (0-2); PLATELET COUNT 206 x10^3mcL (130-400)
[2017-05-07 06:49] LABS: RED CELL DISTRIBUTION WIDTH 17.1 % (11.5-14.5); rbc morphology (normal/abnorm) ABNORMAL (NORMAL)
[2017-05-07 09:30] VITALS: BP 117/66
[2017-05-07 10:36] VITALS: BP 121/73
[2017-05-07 17:01] VITALS: BP 107/63
[2017-05-07 18:39] VITALS: BP 107/63
== END 2017-05-07 20:26 | DRG 371 ==
LOC: ED 09:01 → MU 10:18 → DU 10:18 → MU 10:18 → DU 11:15 → MU 04-28 11:51
PROVIDERS: Family Medicine; Specialist; ADMIT Student in an Organized Health Care Education/Training Program
DX: A04.7 Enterocolitis due to Clostridium difficile (principal); N17.0 Acute kidney failure with tubular necrosis; R65.20 Severe sepsis without septic shock; E87.0 Hyperosmolality and hypernatremia; A08.11 Acute gastroenteropathy due to Norwalk agent; E86.0 Dehydration; E83.42 Hypomagnesemia; F03.90 Unspecified dementia, unspecified severity, without behavioral disturbance, psychotic disturbance, mood disturbance, and anxiety; F31.9 Bipolar disorder, unspecified; Q90.9 Down syndrome, unspecified; R00.0 Tachycardia, unspecified; K21.9 Gastro-esophageal reflux disease without esophagitis; K59.09 Other constipation; M10.9 Gout, unspecified; D53.9 Nutritional anemia, unspecified; E83.39 Other disorders of phosphorus metabolism; E03.9 Hypothyroidism, unspecified; Z68.24 Body mass index [BMI] 24.0-24.9, adult
CPT/HCPCS: 83880; 84439; 87046; 87046-59; 97110-GP; 97530-GP; J3475; J3490; J7030; Q0092